=== PATIENT | female | born 1950 | race Caucasian/White ===

== ENCOUNTER 2022-06-13 14:32 | Emergency (ER) | payer MEDICARE, OTHER ==
--- NOTE | 2022-06-13 14:59 | ED Physician Documentation ---
History of Present Illness - Stated complaint Stated Complaint: RAISING HR/LOW BP - Chief complaint Chief Complaint: Cardiac - History obtained from History obtained from: Patient, Family - History of Present Illness Pain level max: 0 Pain level now: 0 - Additonal information Additional information: Patient is a 72-year-old female who presents to the emergency department complaining of feeling weak over the past month or so. She states her heart rate has been in the 40s as well. No changes today. She reportedly has a history of atrial fibrillation and had a cardioversion on May 11 at the [facility]. She does not know what medication she is on. She brought a few of her medications but not all of her medications. She is not having any chest pain, shortness of breath, nausea, vomiting, abdominal pain. Nothing makes it better or worse. Has not had any syncopal events. We will send a family member back to her house to obtain her medications. Review of Systems Ten Systems: 10 systems reviewed and negative Constitutional: denies: Fever, Chills Nose: denies: Rhinorrhea / runny nose, Congestion Throat: denies: Sore throat Cardiac: denies: Chest pain / pressure, Palpitations Respiratory: denies: Dyspnea, Cough GI: denies: Abdominal Pain, Nausea, Vomiting, Diarrhea PD PAST MEDICAL HISTORY - Past Medical History Past Medical History: Yes Cardiovascular: Atrial fibrillation - Present Medications Home Medications: Ambulatory Orders Medication Instructions Recorded Confirmed Amiodarone [Pacerone] 200 mg PO BID 06/13/22 06/13/22 Amitriptyline HCl 50 mg PO HS 06/13/22 06/13/22 Calcium Citrate 400 mg PO BID 06/13/22 06/13/22 Cevimeline HCl [Evoxac] 30 mg PO Q8HR 06/13/22 06/13/22 Cholecalciferol [Vitamin D3] 5 tab PO DAILY 06/13/22 06/13/22 Gabapentin [Neurontin] 600 mg PO Q6HR 06/13/22 06/13/22 Hydroxychloroquine [Plaquenil] 400 mg PO DAILY 06/13/22 06/13/22 Levothyroxine [Synthroid] 125 mcg PO QDAC 06/13/22 06/13/22 Metoprolol Succinate [Toprol Xl] 100 mg PO BID 06/13/22 06/13/22 Omeprazole Magnesium 20 mg PO DAILY 06/13/22 06/13/22 Rivaroxaban [Xarelto] 20 mg PO DAILY 06/13/22 06/13/22 Ropinirole HCl 0.5 mg PO BID 06/13/22 06/13/22 Rosuvastatin Calcium [Crestor] 20 mg PO HS 06/13/22 06/13/22 Sacubitril/Valsartan [Entresto 97 1 each PO BID 06/13/22 06/13/22 mg-103 mg Tablet] Sertraline HCl 100 mg PO DAILY 06/13/22 06/13/22 carvediloL [Coreg] 3.125 mg PO BID 06/13/22 06/13/22 mycophenolate mofetiL [Cellcept] 250 mg PO BID 06/13/22 06/13/22 - Allergies Allergies/Adverse Reactions: Allergies Allergy/AdvReac Type Severity Reaction Status Date / Time codeine Allergy Emesis Verified 06/13/22 14:43 lisinopril Allergy Edema Verified 06/13/22 14:43 - Living Situation Living Arrangement: reports: At home - Social History Does the pt have substance abuse?: No - Family History Family history: reports: Non contributory PD ED PE NORMAL - Vitals Vital signs reviewed: Yes - General General: Alert and oriented X 3, No acute distress - HEENT HEENT: Moist mucous membranes - Neck Neck: Supple, no meningeal sign - Cardiac Cardiac: RRR, Strong equal pulses - Respiratory Respiratory: No respiratory distress, Clear bilaterally - Abdomen Abdomen: Soft, Non tender, Non distended - Derm Derm: Warm and dry - Extremities Extremities: No edema, No calf tenderness / cord - Neuro Neuro: Alert and oriented X 3 Results - Vitals Vitals: Vital Signs - 24 hr 06/13/22 06/13/22 06/13/22 14:43 15:06 15:30 Temperature 36.8 C Heart Rate 42 L 39 L 38 L Respiratory 19 14 10 L Rate Blood Pressure 90/52 L 146/90 H 144/83 H O2 Saturation 99 98 100 06/13/22 06/13/22 06/13/22 16:19 16:32 17:02 Temperature 36.6 C Heart Rate 39 L 39 L 40 L Respiratory 18 18 18 Rate Blood Pressure 141/84 H 133/78 H 133/78 H O2 Saturation 97 98 96 Oxygen O2 Source Room air - EKG (time done) 1441 Rate: Rate (enter#) (41) Rhythm: Sinus bradycardia Thompson: Normal Intervals: Normal MT QRS: Normal Ischemia: Normal ST segments - Labs Labs: Laboratory Tests 06/13/22 06/13/22 15:00 15:00 WBC 4.1 L RBC 4.04 L Hgb 12.4 Hct 38.8 MCV 96.0 MCH 30.7 MCHC 32.0 RDW 14.5 Plt Count 210 MPV 9.9 Neut # (Auto) 2.7 Lymph # (Auto) 0.9 L Dillingham # (Auto) 0.5 Eos # (Auto) 0.0 Baso # (Auto) 0.0 Absolute Nucleated RBC 0.00 Nucleated RBC % 0.0 Sodium 138 Potassium 4.2 Chloride 102 Carbon Dioxide 30 Anion Gap 6.0 BUN 25 H Creatinine 1.1 H Estimated GFR (MDRD) 49 L Glucose 96 Calcium 8.7 Total Bilirubin 0.6 AST 20 ALT 20 Alkaline Phosphatase 55 Total Protein 6.7 Albumin 3.7 Globulin 3.0 Albumin/Globulin Ratio 1.2 Lipase 32 - Rads (name of study) cxr Radiology: Final report received, EMP read contemporaneously, See rad report PD MEDICAL DECISION MAKING - ED course Complexity details: reviewed results, re-evaluated patient, considered differential, d/w patient, d/w family, d/w clinical practice consultant ED course: Patient is a 72-year-old female who presents to the emergency department with sinus bradycardia. She is asymptomatic with this. Her blood pressure initially was hypotensive, she was given IV fluids and return to the normotensive range. Patient states that she feels much better. I discussed the case with cardiology at the [facility], their notes show that she was supposed to have stopped her metoprolol about a month ago because of bradycardia. The patient states that she stopped the 25 mg metoprolol but started on 200 mg of metoprolol. We will stop the metoprolol today. She has not had any syncope or near syncope. We will have her follow along closely with her doctor to ensure that her heart rate is improving as expected. We will also have her increase her fluid intake at home. Patient counseled regarding signs and symptoms for which I believe and ur gent re-evaluation would be necessary. Patient with good understanding of and agreement to plan and is comfortable going home at this time This document was made in part using voice recognition software. While efforts are made to proofread this document, sound alike and grammatical errors may occur. Departure - Departure Disposition: 01 Home, Self Care Clinical Impression: Sinus bradycardia, Dehydration Hypotension Qualifiers: Hypotension type: unspecified hypotension type Qualified Code(s): I95.9 - Hypotension, unspecified Condition: Good Instructions: ED Bradycardia Follow-Up: LULY STANTON MD [Primary Care Provider] - Within 1 week Comments: Please stop all metoprolol. This should help your heart rate elevate back into a normal range. I spoke with cardiology at the [facility] today. Please continue your other medications. Please return if you are having episodes of passing out or close to passing out. Discharge Date/Time: 06/13/22 17:10
[2022-06-13] MEDS ORDERED: SODIUM CHLORIDE 0.9% 1,000 ML IV STA ×2 (15:03)
[2022-06-13 15:24] LABS: BASOPHILS % (AUTO) 0.7 %; HCT - HEMATOCRIT 38.8 % (37.0-47.0); HGB - HEMOGLOBIN 12.4 g/dL (12.0-16.0); LYMPHOCYTES # (AUTO) 0.9 10^3/uL (1.5-3.5); LYMPHOCYTES % (AUTO) 22.3 %; MEAN CORPUSCULAR HEMOGLOBIN 30.7 pg (27.0-31.0); MEAN PLATELET VOLUME 9.9 fL (7.9-10.8); MONOCYTES # (AUTO) 0.5 10^3/uL (0.0-1.0); MONOCYTES % (AUTO) 11.7 %; NEUTROPHILS # (AUTO) 2.7 10^3/uL (1.5-6.6); NEUTROPHILS % (AUTO) 64.8 %; PLT - PLATELET COUNT 210 10^3/uL (130-450); RED BLOOD COUNT 4.04 10^6/uL (4.20-5.40); RED CELL DISTRIBUTION WIDTH 14.5 % (12.0-15.0); WHITE BLOOD COUNT 4.1 x10^3/uL (4.8-10.8)
[2022-06-13 15:32] LABS: ALBUMIN 3.7 g/dL (3.2-5.5); ALBUMIN/GLOBULIN RATIO 1.2 (1.0-2.2); BILIRUBIN,TOTAL 0.6 mg/dL (0.2-1.0); CALCIUM 8.7 mg/dL (8.5-10.3); CREATININE 1.1 mg/dL (0.4-1.0); POTASSIUM 4.2 mmol/L (3.5-5.0); TOTAL PROTEIN 6.7 g/dL (6.7-8.2)
--- NOTE | 2022-06-13 15:37 | XRAY Report ---
PROCEDURE: Chest 1 View X-Ray INDICATIONS: bradycardia, weakness TECHNIQUE: One view of the chest was acquired. COMPARISON: None. FINDINGS: Surgical changes and devices: None. Lungs and pleura: No pleural effusions or pneumothorax. Lungs are clear. Mediastinum: Mediastinal contours appear normal. Heart size is normal. Moderate hiatal hernia. Bones and chest wall: No suspicious bony lesions. Overlying soft tissues appear unremarkable. IMPRESSION: Moderate hiatal hernia. No acute finding. Reviewed by: Demond Mohamud MD on 06/13/2022 3:35 PM PDT Approved by: Demond Mohamud MD on 06/13/2022 3:35 PM PDT Station ID: [id number]
[2022-06-13 16:41] VITALS: BP 133/78
== END 2022-06-13 17:10 | disposition home or self-care (01) ==
LOC: ED 14:32
DX: R00.1 Bradycardia, unspecified (principal); E86.0 Dehydration; I95.9 Hypotension, unspecified; R53.1 Weakness; I48.91 Unspecified atrial fibrillation; Z79.01 Long term (current) use of anticoagulants
CPT/HCPCS: 36415; 80053; 83690; 85025; 93005; 96360; 99283

== ENCOUNTER 2022-09-26 13:11 | Emergency (ER) | payer MEDICARE, OTHER ==
[2022-09-26 13:17] VITALS: BP 134/90
--- NOTE | 2022-09-26 14:35 | ED Physician Documentation ---
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 She completed a full course of valacyclovir. However since yesterday evening she has been having subjective fevers and chills. Also having some urinary urgency and frequency though no dysuria. Here in the emergency department she denies chest pain or shortness of air. She has no fever. Past medical history includes lupus and Sjogren's. Daughter in attendance corroborates history. Review of Systems Constitutional: reports: Chills, Myalgias, Fatigue Nose: reports: Reviewed and negative Throat: reports: Reviewed and negative Cardiac: denies: Chest pain / pressure, Palpitations Respiratory: denies: Dyspnea, Cough GI: denies: Abdominal Pain, Nausea, Vomiting : reports: Frequency, Hesitancy Skin: reports: Rash (Shingles left neck) Musculoskeletal: reports: Reviewed and negative PD PAST MEDICAL HISTORY - Past Medical History Cardiovascular: Atrial fibrillation Respiratory: Asthma Neuro: Peripheral neuropathy Endocrine/Autoimmune: HyPOthyroidism GI: None PRICING LEAD: None : None HEENT: None Psych: Depression Musculoskeletal: Chronic back pain Derm: None - Past Surgical History Past Surgical History: Yes General: Cholecystectomy, Appendectomy Ortho: Arthroscopic surgery, Other - Present Medications Home Medications: Ambulatory Orders Medication Instructions Recorded Confirmed Amiodarone [Pacerone] 200 mg PO BID 06/13/22 06/13/22 Amitriptyline HCl 50 mg PO HS 06/13/22 06/13/22 Calcium Citrate 400 mg PO BID 06/13/22 06/13/22 Cevimeline HCl [Evoxac] 30 mg PO Q8HR 06/13/22 06/13/22 Cholecalciferol [Vitamin D3] 5 tab PO DAILY 06/13/22 06/13/22 Gabapentin [Neurontin] 600 mg PO Q6HR 06/13/22 06/13/22 Hydroxychloroquine [Plaquenil] 400 mg PO DAILY 06/13/22 06/13/22 Levothyroxine [Synthroid] 125 mcg PO QDAC 06/13/22 06/13/22 Metoprolol Succinate [Toprol Xl] 100 mg PO BID 06/13/22 06/13/22 Omeprazole Magnesium 20 mg PO DAILY 06/13/22 06/13/22 Rivaroxaban [Xarelto] 20 mg PO DAILY 06/13/22 06/13/22 Ropinirole HCl 0.5 mg PO BID 06/13/22 06/13/22 Rosuvastatin Calcium [Crestor] 20 mg PO HS 06/13/22 06/13/22 Sacubitril/Valsartan [Entresto 97 1 each PO BID 06/13/22 06/13/22 mg-103 mg Tablet] Sertraline HCl 100 mg PO DAILY 06/13/22 06/13/22 carvediloL [Coreg] 3.125 mg PO BID 06/13/22 06/13/22 mycophenolate mofetiL [Cellcept] 250 mg PO BID 06/13/22 06/13/22 - Allergies Allergies/Adverse Reactions: Allergies Allergy/AdvReac Type Severity Reaction Status Date / Time codeine Allergy Emesis Verified 09/26/22 13:13 lisinopril Allergy Edema Verified 09/26/22 13:13 - Social History Does the pt smoke?: No Smoking Status: Never smoker Does the pt drink ETOH?: No Does the pt have substance abuse?: No - Immunizations Immunizations are current?: Yes - POLST Patient has POLST: No PD ED PE NORMAL - General General: Alert and oriented X 3, No acute distress, Well developed/nourished - HEENT HEENT: Atraumatic, Ears normal, Moist mucous membranes, Pharynx benign - Neck Neck: Supple, no meningeal sign, No adenopathy - Cardiac Cardiac: RRR, No murmur Results - Vitals Vitals: Vital Signs - 24 hr 09/26/22 13:13 Temperature 37.0 C Heart Rate 82 Respiratory 16 Rate Blood Pressure 134/90 H O2 Saturation 98 Oxygen O2 Source Room air - Labs Labs: Laboratory Tests 09/26/22 14:31 Urine Color YELLOW Urine Clarity CLEAR Urine pH 7.0 Ur Specific Roberts 1.025 Urine Protein NEGATIVE Urine Glucose (UA) NEGATIVE Urine Ketones NEGATIVE Urine Occult Blood NEGATIVE Urine Nitrite NEGATIVE Urine Bilirubin NEGATIVE Urine Urobilinogen 0.2 (NORMAL) Ur Leukocyte Esterase NEGATIVE Ur Microscopic Review NOT INDICATED Urine Culture Comments NOT INDICATED PD Medical Decision Making - ED course Complexity details: re-evaluated patient, considered differential, d/w patient, d/w family ED course: This is a well-appearing 72 of female who presents emergency department for evaluation of persistent pain on the left side of the jaw neck and scalp at the site where she recently had shingles. The rash itself appears to have resolved. She is on Neurontin. She had also reported some vague chills and myalgias. Also urinary urgency and frequency. Urinalysis showed no findings of infection. Patient denies any chest pain or dyspnea. We deferred EKG or serum laboratory testing today Respiratory PCR is pending today. However she has no chest pain or shortness of air Or cough. Therefore I deferred a chest x-ray as my suspicion for pneumonia is low. As such I suspect that she may have a mild viral illness. She is discharged home in stable condition. Will follow up with any positive PCR results. Departure - Departure Disposition: 01 Home, Self Care Clinical Impression: Postherpetic neuralgia Condition: Stable Record reviewed to determine appropriate education?: Yes Comments: Valerie dale are seen today in the emergency department because you continue to have pain in the left side of your face and neck were you recently had shingles. The rash appears to have healed well but the pain can persist for a number of weeks and months. I encourage you to continue with the Neurontin which you already take for your neuropathy. Many people find relief of the pain by applying and [id number] lidocaine cream available at all pharmacies. Here in the emergency department today your urine showed no signs of infection. But given your reported chills and body aches we did perform a viral screening. We will have these results later this evening and I will notify you only if there are any positive findings. Encourage you to discuss this ED visit with your primary care provider. Return immediately to the ER if you develop fevers, have sudden severe chest pain shortness of air, severe abdominal pain or uncontrolled vomiting
[2022-09-26 14:40] LABS: BILIRUBIN,URINE NEGATIVE (NEGATIVE); GLUCOSE, URINE (UA) NEGATIVE (NEGATIVE); KETONES,URINE (UA) NEGATIVE (NEGATIVE); LEUKOCYTE ESTERASE, URINE NEGATIVE (NEGATIVE); NITRITE,URINE NEGATIVE (NEGATIVE); OCCULT BLOOD,URINE NEGATIVE (NEGATIVE); PROTEIN,URINE NEGATIVE (NEGATIVE); UROBILINOGEN,URINE 0.2 (NORMAL) E.U./dL (NORMAL)
[2022-09-26 14:42] LABS: CLARITY,URINE CLEAR (CLEAR)
[2022-09-26 15:46] LABS: B. PARAPERTUSSIS- RESP PCR PAN NOT DETECTED; B. PERTUSSIS- RESP PCR PANEL NOT DETECTED; C. PNEUMONIAE- RESP PCR PANEL NOT DETECTED; CORONAVIRUS 229E-RESP PCR NOT DETECTED; CORONAVIRUS HKU1-RESP PCR NOT DETECTED; CORONAVIRUS NL63-RESP PCR NOT DETECTED; CORONAVIRUS OC43-RESP PCR NOT DETECTED; HUMAN METAPNEUMOVIRUS NOT DETECTED; INFLUENZA A- RESP PCR PANEL NOT DETECTED; INFLUENZA B - RESP PCR PANEL NOT DETECTED; M. PNEUMONIAE- RESP PCR PANEL NOT DETECTED; PARAINFLUENZA VIRUS 1 NOT DETECTED; PARAINFLUENZA VIRUS 2 NOT DETECTED; PARAINFLUENZA VIRUS 3 NOT DETECTED; PARAINFLUENZA VIRUS 4 NOT DETECTED; RHINOVIRUS/ENTEROVIRUS NOT DETECTED; RSV- RESP PCR PANEL NOT DETECTED; SARS-CoV-2 -RESP PCR PANEL NOT DETECTED
== END 2022-09-26 15:42 | disposition home or self-care (01) ==
LOC: ED 13:11
DX: B02.29 Other postherpetic nervous system involvement (principal); I48.91 Unspecified atrial fibrillation; Z79.01 Long term (current) use of anticoagulants; Z20.822 Contact with and (suspected) exposure to COVID-19
CPT/HCPCS: 81001; 81003; 87086; 87633; 99283

== ENCOUNTER 2022-10-06 12:03 | Outpatient (CLI) | payer MEDICARE, OTHER | END 2022-10-06 12:04 | disposition critical access hospital (66) | LOC: EMS 12:03 | DX: R07.9 Chest pain, unspecified (principal); R06.02 Shortness of breath | CPT/HCPCS: A0425; A0429 ==

== ENCOUNTER 2022-10-06 12:22 | Emergency (ER) | payer MEDICARE, OTHER ==
--- NOTE | 2022-10-06 12:29 | ED Physician Documentation ---
History of Present Illness - Stated complaint Stated Complaint: CARDIAC CP - Additonal information Additional information: 72-year-old female is brought to the emergency department for evaluation of chest pain and shortness of air that began about 45 minutes prior to arrival. History is obtained from both the patient as well as EMS on scene. Patient is a good historian. Patient states that she was simply working at her computer, doing nothing stressful or wearing when she began to haveSevere substernal chest pain and pressure that took her breath away. Nonradiating. Denies nausea or diaphoresis. She called 911 they advised her to take an aspirin. On presentation for EMS she was noted to be in sinus rhythm. Blood sugar was 83. The chest pressure began to dissipate on its own with no further treatment and is only c/o mild discomfort at this time Patient has a history of atrial fibrillation for which she was cardioverted in May through cardiology at [place]. has reportedly been in sinus rhythm since, but was seen in the ED June for bradycardia. She also has a history of lupus and anxiety/depression. Meds: Amiodarone, carvedilol, amitriptyline, Plaquenil, Rapranol, Rouvastatin, sertraline Patient's deckhand engineer is Dr. Trotter through the [place] [facility] [place] Patient's daughter provides to me ancillary history that the patient did not allude to. She states that over the weekend patient was nauseated and had 2 to 3 days of diarrhea. Since then she had very little oral intake until yesterday when she began feeling better and eating better. Review of Systems Constitutional: denies: Fever, Chills Nose: reports: Reviewed and negative Throat: reports: Reviewed and negative Cardiac: reports: Chest pain / pressure. denies: Palpitations, Pedal edema, Calf pain Respiratory: reports: Dyspnea. denies: Cough, Hemoptysis, Wheezing GI: reports: Reviewed and negative : reports: Reviewed and negative Skin: reports: Reviewed and negative Musculoskeletal: reports: Reviewed and negative Neurologic: reports: Reviewed and negative PD PAST MEDICAL HISTORY - Past Medical History Cardiovascular: Atrial fibrillation Respiratory: Asthma Neuro: Peripheral neuropathy Endocrine/Autoimmune: HyPOthyroidism GI: None HEALTH CARE ADMINISTRATOR: None : None HEENT: None Psych: Depression Musculoskeletal: Chronic back pain Derm: None - Past Surgical History Past Surgical History: Yes General: Cholecystectomy, Appendectomy Ortho: Arthroscopic surgery, Other - Present Medications Home Medications: Ambulatory Orders Medication Instructions Recorded Confirmed Amiodarone [Pacerone] 200 mg PO BID 06/13/22 10/06/22 Amitriptyline HCl 50 mg PO HS 06/13/22 10/06/22 Calcium Citrate 400 mg PO BID 06/13/22 10/06/22 Cevimeline HCl [Evoxac] 30 mg PO Q8HR 06/13/22 10/06/22 Cholecalciferol [Vitamin D3] 5 tab PO DAILY 06/13/22 10/06/22 Gabapentin [Neurontin] 600 mg PO Q6HR 06/13/22 10/06/22 Hydroxychloroquine [Plaquenil] 400 mg PO DAILY 06/13/22 10/06/22 Levothyroxine [Synthroid] 125 mcg PO QDAC 06/13/22 10/06/22 Rivaroxaban [Xarelto] 20 mg PO DAILY 06/13/22 10/06/22 Ropinirole HCl 0.25 mg PO BID 06/13/22 10/06/22 Rosuvastatin Calcium [Crestor] 20 mg PO HS 06/13/22 10/06/22 Sacubitril/Valsartan [Entresto 97 1 each PO BID 06/13/22 10/06/22 mg-103 mg Tablet] Sertraline HCl 100 mg PO DAILY 06/13/22 10/06/22 carvediloL [Coreg] 3.125 mg PO BID 06/13/22 10/06/22 mycophenolate mofetiL [Cellcept] 250 mg PO BID 06/13/22 10/06/22 - Allergies Allergies/Adverse Reactions: Allergies Allergy/AdvReac Type Severity Reaction Status Date / Time codeine Allergy Emesis Verified 10/06/22 12:28 lisinopril Allergy Edema Verified 10/06/22 12:28 - Social History Does the pt smoke?: No Smoking Status: Never smoker Does the pt drink ETOH?: No Does the pt have substance abuse?: No - Immunizations Immunizations are current?: Yes - POLST Patient has POLST: No PD ED PE NORMAL - General General: Alert and oriented X 3, No acute distress, Well developed/nourished - HEENT HEENT: Atraumatic, Moist mucous membranes - Neck Neck: Supple, no meningeal sign, No adenopathy - Cardiac Cardiac: RRR, No murmur (Normal sinus rhythm.), Strong equal pulses - Respiratory Respiratory: No respiratory distress, Clear bilaterally - Abdomen Abdomen: Normal bowel sounds, Soft - Back Back: No CVA TTP, No spinal TTP - Derm Derm: Normal color, Warm and dry, No rash - Extremities Extremities: No deformity, No tenderness to palpate, Normal ROM s pain - Neuro Neuro: Alert and oriented X 3, flexographic press operator 2-12 intact Eye Opening: Spontaneous Motor: Obeys Commands Verbal: Oriented GCS Score: 15 - Psych Psych: Normal mood Results - Vitals Vitals: Vital Signs - 24 hr 10/06/22 10/06/22 10/06/22 12:25 12:57 13:27 Temperature 36.6 C Heart Rate 58 L 59 L 55 L Respiratory 18 14 14 Rate Blood Pressure 153/87 H 126/79 123/78 O2 Saturation 100 100 99 10/06/22 10/06/22 10/06/22 14:00 14:30 15:00 Temperature Heart Rate 57 L 54 L 53 L Respiratory 15 14 15 Rate Blood Pressure 117/87 H 141/82 H 154/83 H O2 Saturation 100 100 98 10/06/22 10/06/22 10/06/22 15:30 16:00 16:30 Temperature Heart Rate 53 L 63 55 L Respiratory 15 15 16 Rate Blood Pressure 134/89 H 150/83 H 139/87 H O2 Saturation 97 98 98 10/06/22 10/06/22 10/06/22 17:00 17:30 18:00 Temperature Heart Rate 53 L 77 57 L Respiratory 14 14 14 Rate Blood Pressure 133/90 H 165/96 H 165/96 H O2 Saturation 100 100 100 10/06/22 18:30 Temperature 36.5 C Heart Rate 54 L Respiratory 16 Rate Blood Pressure 128/82 H O2 Saturation 100 Oxygen O2 Source Room air - EKG (time done) 1250 Rate: Rate (enter#) (58) Rhythm: NSR Intervals: Normal [place], Prolonged QT QRS: Normal Ischemia: Non specific changes Compare to prior EKG: Unchanged from prior EKG Computer interpretation: Agree with computer 1727 Rate: Rate (enter#) (83) Rhythm: NSR [place]: Normal Intervals: Normal [place]. No: Prolonged QT Ischemia: Non specific changes Compare to prior EKG: Changed from prior EKG (QTC now 470) Computer interpretation: Agree with computer - Labs Labs: Laboratory Tests 10/06/22 10/06/22 10/06/22 12:20 12:20 12:26 WBC 7.1 RBC 4.43 Hgb 13.3 Hct 40.6 MCV 91.6 MCH 30.0 MCHC 32.8 RDW 15.2 H Plt Count 206 MPV 10.2 Neut # (Auto) 4.8 Lymph # (Auto) 1.3 L [place] # (Auto) 1.0 Eos # (Auto) 0.0 Baso # (Auto) 0.0 Absolute Nucleated RBC 0.00 Nucleated RBC % 0.0 PT INR Sodium Potassium Chloride Carbon Dioxide Anion Gap BUN Creatinine Estimated GFR (MDRD) Glucose Calcium Magnesium 1.7 Total Bilirubin AST ALT Alkaline Phosphatase Troponin I High Sens B-Natriuretic Peptide Total Protein Albumin Globulin Albumin/Globulin Ratio Lipase TSH 1.00 Nasal Influenza B PCR Nasal Influenza A PCR Nasal RSV (PCR) Nasal SARS-CoV-2 (PCR) 10/06/22 10/06/22 10/06/22 12:26 12:26 12:26 WBC RBC Hgb Hct MCV MCH MCHC RDW Plt Count MPV Neut # (Auto) Lymph # (Auto) [place] # (Auto) Eos # (Auto) Baso # (Auto) Absolute Nucleated RBC Nucleated RBC % PT 16.0 H INR 1.5 H Sodium 136 Potassium 2.5 L* Chloride 97 L Carbon Dioxide 23 Anion Gap 16.0 H BUN 11 Creatinine 1.0 Estimated GFR (MDRD) 54 L Glucose 96 Calcium 8.6 Magnesium Total Bilirubin 0.9 AST 29 ALT 19 Alkaline Phosphatase 33 L Troponin I High Sens 17.1 H* B-Natriuretic Peptide Total Protein 6.5 L Albumin 3.7 Globulin 2.8 Albumin/Globulin Ratio 1.3 Lipase 42 TSH Nasal Influenza B PCR Nasal Influenza A PCR Nasal RSV (PCR) Nasal SARS-CoV-2 (PCR) 10/06/22 10/06/22 10/06/22 12:26 14:08 15:09 WBC RBC Hgb Hct MCV MCH MCHC RDW Plt Count MPV Neut # (Auto) Lymph # (Auto) [place] # (Auto) Eos # (Auto) Baso # (Auto) Absolute Nucleated RBC Nucleated RBC % PT INR Sodium Potassium Chloride Carbon Dioxide Anion Gap BUN Creatinine Estimated GFR (MDRD) Glucose Calcium Magnesium Total Bilirubin AST ALT Alkaline Phosphatase Troponin I High Sens 14.9 H* B-Natriuretic Peptide 169 H Total Protein Albumin Globulin Albumin/Globulin Ratio Lipase TSH Nasal Influenza B PCR NOT DETECTED Nasal Influenza A PCR NOT DETECTED Nasal RSV (PCR) NOT DETECTED Nasal SARS-CoV-2 (PCR) NOT DETECTED 10/06/22 18:03 WBC RBC Hgb Hct MCV MCH MCHC RDW Plt Count MPV Neut # (Auto) Lymph # (Auto) [place] # (Auto) Eos # (Auto) Baso # (Auto) Absolute Nucleated RBC Nucleated RBC % PT INR Sodium Potassium 3.0 L Chloride Carbon Dioxide Anion Gap BUN Creatinine Estimated GFR (MDRD) Glucose Calcium Magnesium Total Bilirubin AST ALT Alkaline Phosphatase Troponin I High Sens B-Natriuretic Peptide Total Protein Albumin Globulin Albumin/Globulin Ratio Lipase TSH Nasal Influenza B PCR Nasal Influenza A PCR Nasal RSV (PCR) Nasal SARS-CoV-2 (PCR) - Rads (name of study) cxr Radiology: Final report received (No acute cardiopulmonary process) PD Medical Decision Making - ED course Complexity details: reviewed results, re-evaluated patient, considered differ ential, d/w patient ED course: 72-year-old female presents to the emergency department for evaluation of substernal chest pain and chest pressure that began about 11:45 AM. She does have a history of atrial fibrillation for which she was cardioverted in May through the [place] deckhand engineer. She is not anticoagulated and has seemingly been in sinus rhythm since then. For EMS she received a total of 325 of aspirin. On arrival to the ER her pain had markedly subsided and was only described as mild. She was given a dose of nitroglycerin which fully abated the chest discomfort though she did endorse a mild headache following. Patient's initial EKG is nonischemic. It is interpreted by the computer as an ectopic atrial though I believe there are P waves present before each complex. She also has a prolonged QT interval. Not surprisingly her potassium level is 2.5 on serum labs. I suspect the cause of her hypokalemia to be the poor oral intake in the days preceding as well as some diarrhea. In order to address the hypokalemia she was administered 40 mg of potassium IV as well as 20 mg orally. A repeat potassium was3.0. I did repeat her EKG after the Potassium had been administered and her repeat QTC is now 470 and no longer prolonged. Patient will be discharged with a prescription for potassium 20 No equivalents daily for the next 4 days. I suspect her hypokalemia is due to the diarrhea in the preceding days as well as poor p.o. intake Patient's initial troponin 17.9. Given that she presented so quickly after the pain event a repeat troponin was ordered for 1500 and was 14.9. Essentially flat. I did speak with the on-call deckhand engineer Dr. Ring with the [facility]. He feels that the patient can be safely discharged home. He reports that they will arrange for an outpatient follow-up Zoom visit within the week to discuss further testing and care needs. While here in the emergency department for 6 and half hours the patient has remained hemodynamically stable and now free of chest pain. She is discharged home in stable condition. The usual emergent return precautions for concerns of chest pain were discussed Departure - Departure Disposition: Home, Self Care Clinical Impression: Hypokalemia, Prolonged Q-T interval on ECG Chest pain Qualifiers: Chest pain type: unspecified Qualified Code(s): R07.9 - Chest pain, unspecified Condition: Stable Record reviewed to determine appropriate education?: Yes Instructions: ED Heart Disease Risk Factors Comments: Valerie dale came to the emergency department today for a brief episode of chest pain that occurred while you are sitting at the computer. While here in the emergency department you will had received 325 mg of aspirin and we did give you a one-time dose of nitroglycerin which fully alleviated you have chest pain. Your EKG did not show ischemic changes. However you did have a prolonged QTC. We usually see this when patients have low potassium levels. Interestingly your potassium was 2.5. Here in the emergency department we gave you both oral and IV potassium for total of 60 mEq. On repeat evaluation your potassium has risen to 3 and your QTC has normalized. I am discharging you with a prescription for potassium 20 mEq a day to take for the next 4 days. With your history of atrial fibrillation as well as your age it is not clear what the episode of chest pain was due to. I did speak with Dr. Ring a deckhand engineer with the [facility]. He will be having the office give you a call early next week to arrange an outpatient Zoom visit. During that visit they can discuss whether you will need further evaluation or testing such as with an echocardiogram or stress test. You can continue to take your other usual medications. Return to the ER if you have any sudden severe chest pain, shortness of air or feel that your symptoms are not improving.
[2022-10-06 12:31] LABS: BASOPHILS % (AUTO) 0.3 %; HCT - HEMATOCRIT 40.6 % (37.0-47.0); HGB - HEMOGLOBIN 13.3 g/dL (12.0-16.0); LYMPHOCYTES # (AUTO) 1.3 10^3/uL (1.5-3.5); MEAN CORPUSCULAR HGB CONC 32.8 g/dL (32.0-36.0); MEAN CORPUSCULAR VOLUME 91.6 fL (81.0-99.0); MEAN PLATELET VOLUME 10.2 fL (7.9-10.8); MONOCYTES % (AUTO) 13.7 %; NEUTROPHILS # (AUTO) 4.8 10^3/uL (1.5-6.6); NEUTROPHILS % (AUTO) 67.7 %; PLT - PLATELET COUNT 206 10^3/uL (130-450); RED BLOOD COUNT 4.43 10^6/uL (4.20-5.40); RED CELL DISTRIBUTION WIDTH 15.2 % (12.0-15.0); WHITE BLOOD COUNT 7.1 x10^3/uL (4.8-10.8)
[2022-10-06 12:39] LABS: INR 1.5 (0.8-1.2)
--- NOTE | 2022-10-06 12:39 | XRAY Report ---
PROCEDURE: Chest 1 View X-Ray INDICATIONS: Chest Pain TECHNIQUE: One view of the chest was acquired. COMPARISON: None. FINDINGS: Surgical changes and devices: None. Lungs and pleura: No pleural effusions or pneumothorax. Lungs are clear. Mediastinum: Mediastinal contours appear normal. Heart size is mildly enlarged.Retrocardiac lucency is present suggestive hiatal hernia. Bones and chest wall: No suspicious bony lesions. Overlying soft tissues appear unremarkable. IMPRESSION: No acute pulmonary process. Reviewed by: Prabha Croft MD on 10/06/2022 12:37 PM PST Approved by: Prabha Croft MD on 10/06/2022 12:37 PM PST Station ID: [id number]
[2022-10-06 12:47] LABS: ALBUMIN 3.7 g/dL (3.2-5.5); ALBUMIN/GLOBULIN RATIO 1.3 (1.0-2.2); BILIRUBIN,TOTAL 0.9 mg/dL (0.2-1.0); CALCIUM 8.6 mg/dL (8.5-10.3); TOTAL PROTEIN 6.5 g/dL (6.7-8.2)
[2022-10-06 12:48] LABS: POTASSIUM 2.5 mmol/L (3.5-5.0)
[2022-10-06] MEDS ORDERED: NITROGLYCERIN SL 0.4 MG TABLET SL STA (12:57)
[2022-10-06] MEDS: POTASSIUM CHLOR 10 MEQ/100 ML 10 MEQ/100 ML BAG IV SCH ×4 (12:59→16:11)
[2022-10-06] MEDS ORDERED: SODIUM CHLORIDE 0.9% 1,000 ML IV STA (13:11)
[2022-10-06] MEDS ORDERED: POTASSIUM CHLORIDE 20 MEQ TABLET PO STA (13:24)
[2022-10-06 15:07] LABS: INFLUENZA A- RESP PCR PANEL NOT DETECTED; INFLUENZA B - RESP PCR PANEL NOT DETECTED; RSV- RESP PCR PANEL NOT DETECTED; SARS-CoV-2 -RESP PCR PANEL NOT DETECTED
[2022-10-06 18:45] VITALS: BP 128/82
== END 2022-10-06 19:23 | disposition home or self-care (01) ==
LOC: EDUNIT# → ED 12:22
DX: E87.6 Hypokalemia (principal); R94.31 Abnormal electrocardiogram [ECG] [EKG]; R07.9 Chest pain, unspecified; Z20.822 Contact with and (suspected) exposure to COVID-19
CPT/HCPCS: 36415; 71045; 80053; 83690; 83735; 83880; 84132; 84443; 84484; 85025; 85610; 87637; 93005; 96365; 96366; 99284; A9270

== ENCOUNTER 2022-10-11 09:35 | Outpatient (CLI) | payer MEDICARE, OTHER | END 2022-10-11 09:36 | disposition critical access hospital (66) | LOC: EMS 09:35 | DX: R42 Dizziness and giddiness (principal); R11.2 Nausea with vomiting, unspecified; R63.8 Other symptoms and signs concerning food and fluid intake; I48.91 Unspecified atrial fibrillation | CPT/HCPCS: A0425; A0429 ==

== ENCOUNTER 2022-10-11 09:48 | Emergency (ER) | payer MEDICARE, OTHER ==
[2022-10-11] MEDS ORDERED: ONDANSETRON 4 MG/2 ML VIAL IVP STA (10:55)
[2022-10-11] MEDS ORDERED: SODIUM CHLORIDE 0.9% 1,000 ML IV STA (10:55)
[2022-10-11 11:12] LABS: BASOPHILS % (AUTO) 0.3 %; HCT - HEMATOCRIT 39.7 % (37.0-47.0); HGB - HEMOGLOBIN 12.8 g/dL (12.0-16.0); LYMPHOCYTES % (AUTO) 16.4 %; MEAN CORPUSCULAR HGB CONC 32.2 g/dL (32.0-36.0); MEAN CORPUSCULAR VOLUME 93.2 fL (81.0-99.0); MEAN PLATELET VOLUME 9.9 fL (7.9-10.8); MONOCYTES # (AUTO) 0.9 10^3/uL (0.0-1.0); MONOCYTES % (AUTO) 14.7 %; NEUTROPHILS % (AUTO) 68.3 %; PLT - PLATELET COUNT 199 10^3/uL (130-450); RED BLOOD COUNT 4.26 10^6/uL (4.20-5.40); WHITE BLOOD COUNT 5.8 x10^3/uL (4.8-10.8)
[2022-10-11 11:30] LABS: ALBUMIN 3.7 g/dL (3.2-5.5); ALBUMIN/GLOBULIN RATIO 1.4 (1.0-2.2); BILIRUBIN,TOTAL 0.7 mg/dL (0.2-1.0); CALCIUM 8.8 mg/dL (8.5-10.3); CREATININE 0.8 mg/dL (0.4-1.0); POTASSIUM 3.2 mmol/L (3.5-5.0); TOTAL PROTEIN 6.3 g/dL (6.7-8.2)
[2022-10-11] MEDS ORDERED: POTASSIUM CHLORIDE 20 MEQ TABLET PO STA (11:40)
[2022-10-11 12:58] LABS: BILIRUBIN,URINE NEGATIVE (NEGATIVE); GLUCOSE, URINE (UA) NEGATIVE (NEGATIVE); KETONES,URINE (UA) NEGATIVE (NEGATIVE); LEUKOCYTE ESTERASE, URINE NEGATIVE (NEGATIVE); NITRITE,URINE NEGATIVE (NEGATIVE); OCCULT BLOOD,URINE NEGATIVE (NEGATIVE); PH,URINE 6.5 PH (5.0-7.5); PROTEIN,URINE NEGATIVE (NEGATIVE); UROBILINOGEN,URINE 0.2 (NORMAL) E.U./dL (NORMAL)
[2022-10-11 13:02] LABS: CLARITY,URINE CLEAR (CLEAR)
--- NOTE | 2022-10-11 13:02 | ED Physician Documentation ---
History of Present Illness - Stated complaint Stated Complaint: DIZZINESS/WEAKNESS - Chief complaint Chief Complaint: General - History obtained from History obtained from: Patient - Additonal information Additional information: Patient is a 72-year-old female with a recent bout of shingles presenting for evaluation of nausea and vomiting that is been ongoing for several days along with feeling lightheaded. Her daughter at the bedside states that she has not been able to keep any food down. She has been doing okay with liquids. She no longer has any Sores or rash from the shingles and completed a course of valacyclovir.She denies a headache but reports feeling lightheaded at times when she stands up. She denies vertiginous symptoms. She denies fever, chest pain, difficulty breathing or abdominal pain. She denies dysuria or hematuria.She was seen here recently for chest pain and found to have a low potassium level at that time. Review of Systems Constitutional: denies: Fever Cardiac: denies: Chest pain / pressure Respiratory: denies: Dyspnea GI: reports: Nausea, Vomiting. denies: Diarrhea : denies: Dysuria Musculoskeletal: denies: Back pain Neurologic: denies: Headache PD PAST MEDICAL HISTORY - Past Medical History Cardiovascular: Atrial fibrillation Respiratory: Asthma Neuro: Peripheral neuropathy Endocrine/Autoimmune: HyPOthyroidism GI: None DIAMOND SELECTOR: None : None HEENT: None Psych: Depression Musculoskeletal: Chronic back pain Derm: None - Past Surgical History Past Surgical History: Yes General: Cholecystectomy, Appendectomy Ortho: Arthroscopic surgery, Other - Present Medications Home Medications: Ambulatory Orders Medication Instructions Recorded Confirmed Amiodarone [Pacerone] 200 mg PO BID 06/13/22 10/06/22 Amitriptyline HCl 50 mg PO HS 06/13/22 10/06/22 Calcium Citrate 400 mg PO BID 06/13/22 10/06/22 Cevimeline HCl [Evoxac] 30 mg PO Q8HR 06/13/22 10/06/22 Cholecalciferol [Vitamin D3] 5 tab PO DAILY 06/13/22 10/06/22 Gabapentin [Neurontin] 600 mg PO Q6HR 06/13/22 10/06/22 Hydroxychloroquine [Plaquenil] 400 mg PO DAILY 06/13/22 10/06/22 Levothyroxine [Synthroid] 125 mcg PO QDAC 06/13/22 10/06/22 Rivaroxaban [Xarelto] 20 mg PO DAILY 06/13/22 10/06/22 Ropinirole HCl 0.25 mg PO BID 06/13/22 10/06/22 Rosuvastatin Calcium [Crestor] 20 mg PO HS 06/13/22 10/06/22 Sacubitril/Valsartan [Entresto 97 1 each PO BID 06/13/22 10/06/22 mg-103 mg Tablet] Sertraline HCl 100 mg PO DAILY 06/13/22 10/06/22 carvediloL [Coreg] 3.125 mg PO BID 06/13/22 10/06/22 mycophenolate mofetiL [Cellcept] 250 mg PO BID 06/13/22 10/06/22 Potassium Chloride [K-Dur] 20 meq PO DAILY #4 tablet 10/06/22 Ondansetron Odt [Zofran] 4 mg TL Q6H PRN #10 tablet 10/11/22 - Allergies Allergies/Adverse Reactions: Allergies Allergy/AdvReac Type Severity Reaction Status Date / Time codeine Allergy Emesis Verified 10/11/22 09:55 lisinopril Allergy Edema Verified 10/11/22 09:55 - Social History Does the pt smoke?: No Smoking Status: Never smoker Does the pt drink ETOH?: No Does the pt have substance abuse?: No - Immunizations Immunizations are current?: Yes - POLST Patient has POLST: No PD ED PE NORMAL - General General: Alert and oriented X 3, No acute distress, Well developed/nourished - HEENT HEENT: Atraumatic, Moist mucous membranes, Pharynx benign - Neck Neck: Supple, no meningeal sign - Cardiac Cardiac: Other (Irregularly irregular, normal rate) - Respiratory Respiratory: No respiratory distress, Clear bilaterally - Abdomen Abdomen: Normal bowel sounds, Soft, Non tender, Non distended - Derm Derm: Warm and dry, No rash - Extremities Extremities: No edema - Neuro Neuro: Alert and oriented X 3, columnist/commentator 2-12 intact, No motor deficit, No sensory deficit, Normal speech Results - Vitals Vitals: Vital Signs - 24 hr 10/11/22 10/11/22 10/11/22 09:55 11:03 13:00 Temperature 36.5 C Heart Rate 60 58 L 55 L Respiratory 18 17 22 Rate Blood Pressure 144/100 H 145/88 H 136/82 H O2 Saturation 98 98 98 Oxygen O2 Source Room air - EKG (time done) 0954 Rate: Rate (enter#) (85) Rhythm: Atrial fibrillation Other comments: Other comments (Significant motion artifact ) - Labs Labs: Laboratory Tests 10/11/22 10/11/22 10/11/22 10:55 11:05 11:05 WBC 5.8 RBC 4.26 Hgb 12.8 Hct 39.7 MCV 93.2 MCH 30.0 MCHC 32.2 RDW 16.0 H Plt Count 199 MPV 9.9 Neut # (Auto) 4.0 Lymph # (Auto) 1.0 L [place] # (Auto) 0.9 Eos # (Auto) 0.0 Baso # (Auto) 0.0 Absolute Nucleated RBC 0.00 Nucleated RBC % 0.0 Sodium 135 Potassium 3.2 L Chloride 96 L Carbon Dioxide 25 Anion Gap 14.0 H BUN 9 Creatinine 0.8 Estimated GFR (MDRD) 70 L Glucose 105 H Calcium 8.8 Magnesium 1.7 Total Bilirubin 0.7 AST 27 ALT 20 Alkaline Phosphatase 32 L Total Protein 6.3 L Albumin 3.7 Globulin 2.6 Albumin/Globulin Ratio 1.4 Lipase 36 Urine Color Urine Clarity Urine pH Ur Specific [place] Urine Protein Urine Glucose (UA) Urine Ketones Urine Occult Blood Urine Nitrite Urine Bilirubin Urine Urobilinogen Ur Leukocyte Esterase Ur Microscopic Review Urine Culture Comments 10/11/22 12:40 WBC RBC Hgb Hct MCV MCH MCHC RDW Plt Count MPV Neut # (Auto) Lymph # (Auto) [place] # (Auto) Eos # (Auto) Baso # (Auto) Absolute Nucleated RBC Nucleated RBC % Sodium Potassium Chloride Carbon Dioxide Anion Gap BUN Creatinine Estimated GFR (MDRD) Glucose Calcium Magnesium Total Bilirubin AST ALT Alkaline Phosphatase Total Protein Albumin Globulin Albumin/Globulin Ratio Lipase Urine Color YELLOW Urine Clarity CLEAR Urine pH 6.5 Ur Specific [place] 1.010 Urine Protein NEGATIVE Urine Glucose (UA) NEGATIVE Urine Ketones NEGATIVE Urine Occult Blood NEGATIVE Urine Nitrite NEGATIVE Urine Bilirubin NEGATIVE Urine Urobilinogen 0.2 (NORMAL) Ur Leukocyte Esterase NEGATIVE Ur Microscopic Review NOT INDICATED Urine Culture Comments NOT INDICATED PD Medical Decision Making - ED course Complexity details: reviewed results, re-evaluated patient, d/w patient ED course: Patient presenting for evaluation of nausea and vomiting.I did consider abdominal imaging but Her abdominal exam is benign. We did obtain labs and administered IV fluids. Her labs were reviewed which demonstrate a mild hyp okalemia of 3.2. This was replaced with p.o.Her EKG was also reviewed although there was significant motion artifact.Her urine is negative for infection. Her neuro exam is normal and she does not have symptoms to suggest a stroke. I do not see signs of active shingles infection.Patient is tolerating p.o. here and feeling better.She is comfortable with plan for discharge with continued hydration at home and close follow-up with her PCP.Patient and daughter advised on concerning symptoms to return for. Departure - Departure Disposition: Home, Self Care Clinical Impression: Nausea & vomiting, Hypokalemia Condition: Stable Instructions: ED Potassium Deficiency, ED Nausea Vomiting Follow-Up: [facility] [Provider Group] Prescriptions: Ondansetron Odt [Zofran] 4 mg TL Q6H PRN #10 tablet PRN Reason: Nausea / Vomiting Comments: Please follow-up with your primary care doctor through the [facility] for your ongoing symptoms. It is important you stay hydrated. Your potassium level was slightly low today at 3.2 and you were given a potassium pill to help replace this. I would recommend starting out with primarily liquids and making sure you are also getting some protein so boost or Ensure would be good options. I have also sent a small amount of antinausea medications to [facility]. Please use this only as needed. If you have any new or worsening symptoms please consider return to the emergency department. Discharge Date/Time: 10/11/22 13:23
[2022-10-11 13:09] VITALS: BP 136/82
== END 2022-10-11 13:23 | disposition home or self-care (01) ==
LOC: EDUNIT# → ED 09:48
DX: R11.2 Nausea with vomiting, unspecified (principal); E87.6 Hypokalemia; I48.91 Unspecified atrial fibrillation; Z79.01 Long term (current) use of anticoagulants
CPT/HCPCS: 36415; 80053; 81003; 83690; 83735; 85025; 93005; 96361; 96374; 99284; A9270; 81001; 87086

== ENCOUNTER 2022-10-18 01:51 | Outpatient (CLI) | payer MEDICARE, OTHER | END 2022-10-18 01:52 | disposition critical access hospital (66) | LOC: EMS 01:51 | DX: R51.9 Headache, unspecified (principal); M25.552 Pain in left hip; M25.562 Pain in left knee; R25.1 Tremor, unspecified; W01.0XXA Fall on same level from slipping, tripping and stumbling without subsequent striking against object, initial encounter; Y92.009 Unspecified place in unspecified non-institutional (private) residence as the place of occurrence of the external cause | CPT/HCPCS: A0425; A0429 ==

== ENCOUNTER 2022-10-18 02:12 | Emergency (ER) | payer MEDICARE, OTHER ==
[2022-10-18] MEDS ORDERED: ONDANSETRON 4 MG/2 ML VIAL IVP STA (02:15)
[2022-10-18] MEDS ORDERED: fentaNYL 100 MCG/2 ML VIAL IVP STA (02:15)
[2022-10-18 02:33] LABS: BASOPHILS # (AUTO) 0.1 10^3/uL (0.0-0.1); BASOPHILS % (AUTO) 0.7 %; HCT - HEMATOCRIT 38.5 % (37.0-47.0); HGB - HEMOGLOBIN 11.8 g/dL (12.0-16.0); LYMPHOCYTES % (AUTO) 13.6 %; MEAN CORPUSCULAR HGB CONC 30.6 g/dL (32.0-36.0); MEAN PLATELET VOLUME 9.7 fL (7.9-10.8); MONOCYTES # (AUTO) 1.1 10^3/uL (0.0-1.0); MONOCYTES % (AUTO) 14.4 %; NEUTROPHILS # (AUTO) 5.4 10^3/uL (1.5-6.6); PLT - PLATELET COUNT 190 10^3/uL (130-450); RED BLOOD COUNT 3.93 10^6/uL (4.20-5.40); RED CELL DISTRIBUTION WIDTH 16.8 % (12.0-15.0); WHITE BLOOD COUNT 7.6 x10^3/uL (4.8-10.8)
[2022-10-18] MEDS ORDERED: iohexoL-300 100 ML VIAL ONE (02:33)
[2022-10-18 02:43] LABS: INR 2.5 (0.8-1.2); PT - PROTHROMBIN TIME 26.8 secs (9.9-12.6)
[2022-10-18 02:46] LABS: ALBUMIN 3.5 g/dL (3.2-5.5); ALBUMIN/GLOBULIN RATIO 1.3 (1.0-2.2); ALKALINE PHOSPHATASE 31 IU/L (42-121); ALT ALANINE AMINOTRANSFERASE 24 IU/L (10-60); AST ASPARTATE AMINOTRANSFERASE 31 IU/L (10-42); BILIRUBIN,TOTAL 0.6 mg/dL (0.2-1.0); BUN - BLOOD UREA NITROGEN 15 mg/dL (6-20); CALCIUM 8.9 mg/dL (8.5-10.3); CARBON DIOXIDE - CO2 24 mmol/L (21-32); CHLORIDE 99 mmol/L (101-111); CREATININE 1.1 mg/dL (0.4-1.0); ETOH - ETHANOL < 5.0 mg/dL; GFR - MDRD 49 (>89); GLUCOSE 118 mg/dL (70-100); LIPASE 38 U/L (22-51); POTASSIUM 3.6 mmol/L (3.5-5.0); SODIUM 136 mmol/L (135-145); TOTAL PROTEIN 6.1 g/dL (6.7-8.2)
[2022-10-18 03:01] LABS: MUDS CUTOFF CONCENTRATIONS CUTOFF CONC BELOW:
[2022-10-18 03:04] LABS: BILIRUBIN,URINE NEGATIVE (NEGATIVE); GLUCOSE, URINE (UA) NEGATIVE (NEGATIVE); KETONES,URINE (UA) NEGATIVE (NEGATIVE); LEUKOCYTE ESTERASE, URINE NEGATIVE (NEGATIVE); NITRITE,URINE NEGATIVE (NEGATIVE); OCCULT BLOOD,URINE NEGATIVE (NEGATIVE); PROTEIN,URINE NEGATIVE (NEGATIVE); UROBILINOGEN,URINE 0.2 (NORMAL) E.U./dL (NORMAL)
[2022-10-18] MEDS: fentaNYL 100 MCG/2 ML VIAL IVP PRN ×2 (03:05→03:20)
[2022-10-18 03:06] LABS: CLARITY,URINE CLEAR (CLEAR)
[2022-10-18 03:15] LABS: AMPHETAMINE SCREEN,URINE NEGATIVE (NEGATIVE); BARBITURATE SCREEN,UR NEGATIVE (NEGATIVE); BENZODIAZEPINES SCREEN, URINE NEGATIVE (NEGATIVE); COCAINE SCREEN URINE NEGATIVE (NEGATIVE); METHADONE SCREEN, URINE NEGATIVE (NEGATIVE); METHAMPHETAMINES SCREEN, URINE NEGATIVE (NEGATIVE); OPIATE SCREEN, URINE NEGATIVE (NEGATIVE); OXYCODONE SCREEN, URINE NEGATIVE (NEGATIVE); PROPOXYPHENE SCREEN, URINE NEGATIVE (NEGATIVE); THC CANNABINOID SCREEN, URINE NEGATIVE (NEGATIVE); TRICYCLIC ANTIDEPRESSANT,URINE POSITIVE (NEGATIVE)
[2022-10-18] MEDS ORDERED: LORazepam 2 MG/ML VIAL IVP STA (03:24)
[2022-10-18] MEDS ORDERED: MIDAZOLAM 2 MG/2 ML VIAL IVP STA (03:31)
[2022-10-18] MEDS ORDERED: iohexoL-300 100 ML VIAL IVP ONE (04:20)
[2022-10-18] MEDS ORDERED: MIDAZOLAM 2 MG/2 ML VIAL IVP PRN ×2 (05:04→05:12)
--- NOTE | 2022-10-18 05:20 | ED Physician Documentation ---
History of Present Illness - Stated complaint Stated Complaint: GLF - Chief complaint Chief Complaint: Trauma Hd/Nk - Additonal information Additional information: Patient is a 72-year-old female presenting to the emergency department with c hief complaint of fall with facial trauma on Coumadin. Per EMS patient has tremor disorder secondary to Sjogren syndrome. Tremors have a getting progressively worse. Patient was using walker on way to bathroom prior to fall. Uncertain if there is loss of consciousness. Family reports that she has been unable to care for herself and they have been unable to care for her at home. They report that her tremor has progressed to the point where she can no longer eat or drink and that they are unable to assist with things like transfers or lifting her up off the ground when she falls. She reports that she has been having headache and abdominal pain since the fall. She does appear somewhat altered and disorientated to time and history is limited by this fact. Review of Systems Unable to obtain: AMS PD PAST MEDICAL HISTORY - Past Medical History Past Medical History: Yes Cardiovascular: Atrial fibrillation Respiratory: Asthma Neuro: Peripheral neuropathy Endocrine/Autoimmune: HyPOthyroidism, Other GI: Hiatal hernia SHORE WORKER: None : None HEENT: None Psych: Depression Musculoskeletal: Chronic back pain Derm: Herpes zoster Other Past Medical History: Sjogren's Syndrome - Past Surgical History Past Surgical History: Yes General: Cholecystectomy, Appendectomy Ortho: Arthroscopic surgery, Other - Present Medications Home Medications: Ambulatory Orders Medication Instructions Recorded Confirmed Amiodarone [Pacerone] 200 mg PO BID 06/13/22 10/06/22 Amitriptyline HCl 50 mg PO HS 06/13/22 10/06/22 Calcium Citrate 400 mg PO BID 06/13/22 10/06/22 Cevimeline HCl [Evoxac] 30 mg PO Q8HR 06/13/22 10/06/22 Cholecalciferol [Vitamin D3] 5 tab PO DAILY 06/13/22 10/06/22 Gabapentin [Neurontin] 600 mg PO Q6HR 06/13/22 10/06/22 Hydroxychloroquine [Plaquenil] 400 mg PO DAILY 06/13/22 10/06/22 Levothyroxine [Synthroid] 125 mcg PO QDAC 06/13/22 10/06/22 Rivaroxaban [Xarelto] 20 mg PO DAILY 06/13/22 10/06/22 Ropinirole HCl 0.25 mg PO BID 06/13/22 10/06/22 Rosuvastatin Calcium [Crestor] 20 mg PO HS 06/13/22 10/06/22 Sacubitril/Valsartan [Entresto 97 1 each PO BID 06/13/22 10/06/22 mg-103 mg Tablet] Sertraline HCl 100 mg PO DAILY 06/13/22 10/06/22 carvediloL [Coreg] 3.125 mg PO BID 06/13/22 10/06/22 mycophenolate mofetiL [Cellcept] 250 mg PO BID 06/13/22 10/06/22 Potassium Chloride [K-Dur] 20 meq PO DAILY #4 tablet 10/06/22 Ondansetron Odt [Zofran] 4 mg TL Q6H PRN #10 tablet 10/11/22 - Allergies Allergies/Adverse Reactions: Allergies Allergy/AdvReac Type Severity Reaction Status Date / Time codeine Allergy Emesis Verified 10/18/22 02:13 lisinopril Allergy Edema Verified 10/18/22 02:13 - Social History Does the pt smoke?: No Smoking Status: Never smoker Does the pt drink ETOH?: No Does the pt have substance abuse?: No - Immunizations Immunizations are current?: Yes - POLST Patient has POLST: No PD ED PE NORMAL - Vitals Vital signs reviewed: Yes (Within normal limits) - General General: Other (Patient has prominent tremoring in all extremities.). No: Alert and oriented X 3 (Alert and orientated to person and place) - HEENT HEENT: PERRL, EOMI, Other (There is dried blood around the mouth and lips. There is no subluxation of the teeth. There is no active bleeding or obvious laceration on exam.) - Neck Neck: Other (C-collar in place.) - Cardiac Cardiac: RRR, No murmur, No gallop, Strong equal pulses - Respiratory Respiratory: No respiratory distress, Clear bilaterally - Abdomen Abdomen: Normal bowel sounds, Soft, Non tender, No organomegaly - Female Female : Deferred - Rectal Rectal: Deferred - Derm Derm: Normal color - Extremities Extremities: No deformity - Neuro Neuro: soccer commentator 2-12 intact, Other (Active tremoring in all extremities however patient does follow commands. There is no focal or lateralizing neurologic deficit.). No: Alert and oriented X 3 (Alert and orientated to person and place) Eye Opening: Spontaneous Motor: Obeys Commands Verbal: Confused GCS Score: 14 Results - Vitals Vitals: Vital Signs - 24 hr 10/18/22 10/18/22 10/18/22 02:13 02:20 03:35 Temperature 37.1 C Heart Rate 75 86 74 Respiratory 20 17 16 Rate Blood Pressure 122/69 100/74 90/58 L O2 Saturation 98 96 100 If not protocol 5 : Oxygen Flow, liters/minute 10/18/22 10/18/22 10/18/22 04:03 04:41 05:20 Temperature Heart Rate 66 65 64 Respiratory 19 16 18 Rate Blood Pressure 105/61 98/57 L 143/71 H O2 Saturation 100 98 100 If not protocol 3 3 : Oxygen Flow, liters/minute 10/18/22 05:30 Temperature Heart Rate 61 Respiratory 19 Rate Blood Pressure 116/73 O2 Saturation 100 If not protocol 3 : Oxygen Flow, liters/minute Oxygen O2 Source Nasal cannula - Labs Labs: Laboratory Tests 10/18/22 10/18/22 10/18/22 02:29 02:29 02:29 WBC 7.6 RBC 3.93 L Hgb 11.8 L Hct 38.5 MCV 98.0 MCH 30.0 MCHC 30.6 L RDW 16.8 H Plt Count 190 MPV 9.7 Neut # (Auto) 5.4 Lymph # (Auto) 1.0 L [place] # (Auto) 1.1 H Eos # (Auto) 0.0 Baso # (Auto) 0.1 Absolute Nucleated RBC 0.00 Nucleated RBC % 0.0 PT 26.8 H INR 2.5 H APTT 33.0 Sodium 136 Potassium 3.6 Chloride 99 L Carbon Dioxide 24 Anion Gap 13.0 BUN 15 Creatinine 1.1 H Estimated GFR (MDRD) 49 L Glucose 118 H Calcium 8.9 Total Bilirubin 0.6 AST 31 ALT 24 Alkaline Phosphatase 31 L Total Protein 6.1 L Albumin 3.5 Globulin 2.6 Albumin/Globulin Ratio 1.3 Lipase 38 Urine Color Urine Clarity Urine pH Ur Specific Robert Urine Protein Urine Glucose (UA) Urine Ketones Urine Occult Blood Urine Nitrite Urine Bilirubin Urine Urobilinogen Ur Leukocyte Esterase Ur Microscopic Review Urine Culture Comments Urine Opiates Screen Ur Oxycodone Screen Urine Methadone Screen Ur Propoxyphene Screen Ur Barbiturates Screen Ur Tricyclics Screen Ur Phencyclidine Scrn Ur Amphetamine Screen U Methamphetamines Scrn U Benzodiazepines Scrn Urine Cocaine Screen U Cannabinoids Screen Ethyl Alcohol < 5.0 10/18/22 02:49 WBC RBC Hgb Hct MCV MCH MCHC RDW Plt Count MPV Neut # (Auto) Lymph # (Auto) [place] # (Auto) Eos # (Auto) Baso # (Auto) Absolute Nucleated RBC Nucleated RBC % PT INR APTT Sodium Potassium Chloride Carbon Dioxide Anion Gap BUN Creatinine Estimated GFR (MDRD) Glucose Calcium Total Bilirubin AST ALT Alkaline Phosphatase Total Protein Albumin Globulin Albumin/Globulin Ratio Lipase Urine Color YELLOW Urine Clarity CLEAR Urine pH 6.0 Ur Specific Robert 1.020 Urine Protein NEGATIVE Urine Glucose (UA) NEGATIVE Urine Ketones NEGATIVE Urine Occult Blood NEGATIVE Urine Nitrite NEGATIVE Urine Bilirubin NEGATIVE Urine Urobilinogen 0.2 (NORMAL) Ur Leukocyte Esterase NEGATIVE Ur Microscopic Review NOT INDICATED Urine Culture Comments NOT INDICATED Urine Opiates Screen NEGATIVE Ur Oxycodone Screen NEGATIVE Urine Methadone Screen NEGATIVE Ur Propoxyphene Screen NEGATIVE Ur Barbiturates Screen NEGATIVE Ur Tricyclics Screen POSITIVE H Ur Phencyclidine Scrn NEGATIVE Ur Amphetamine Screen NEGATIVE U Methamphetamines Scrn NEGATIVE U Benzodiazepines Scrn NEGATIVE Urine Cocaine Screen NEGATIVE U Cannabinoids Screen NEGATIVE Ethyl Alcohol PD Medical Decision Making - ED course Complexity details: reviewed old records, reviewed results, re-evaluated patient, d/w patient, d/w family Drug Therapy Requiring Monitoring for Toxicity: IV hydromorphone, IV Versed. ED course: Patient 72-year-old female presenting to the emergency department after ground- level fall on Coumadin. History worsening tremor disorder which EMS reports was secondary to Sjogren syndrome. Patient was some confusion on arrival to the emergency department. Disorientated to time. Some dried blood around the mouth but no crepitation, step-off to the jaw or active bleeding identified. Comprehensive labs ordered demonstrated a low level anemia as well as an INR that is therapeutic at 2.5. Patient had persistent tremoring despite administration of med pain medication. Was given dose of Versed in order to obtain comprehensive imaging which included CT head, C-spine, chest abdomen and pelvis imaging. Unfortunately there was significant motion artifact in the initial reads on the CT head and C-spine were inadequate per the prelim radiology reports and they needed to be repeated. Patient received a second dose of Versed to accommodate this. Ultimately her CT head and C-spine were cleared for traumatic injury. The CT of her chest abdomen pelvis demonstrated a hiatal hernia but no acute findings. Family however reports that her tremor disorder has been getting progressively worse and they feel they are no longer able to care for her. I will board her here into the morning so that she can be reevaluated by social work in the a.m. At this time she will be signed out to the oncoming physician, please see their documentation for further detail. Departure - Departure Clinical Impression: Unable to care for self, Tremor, Hiatal hernia Fall Qualifiers: Encounter type: initial encounter Qualified Code(s): W19.XXXA - Unspecified fall, initial encounter Facial abrasion Qualifiers: Encounter type: initial encounter Qualified Code(s): S00.81XA - Abrasion of other part of head, initial encounter
--- NOTE | 2022-10-18 07:45 | CT Report ---
PROCEDURE: HEAD WO INDICATIONS: Head trauma, mod-severe TECHNIQUE: Noncontrast 4.5 mm thick angled axial sections acquired from the foramen magnum to the vertex. For r adiation dose reduction, the following was used: automated exposure control, adjustment of mA and/or kV according to patient size. COMPARISON: None. FINDINGS: Image quality: Excellent. CSF spaces: Basal cisterns are patent. No extra-axial fluid collections. Ventricles are normal in size and shape. Brain: No midline shift. No intracranial masses or hemorrhage. There is mild cerebral volume loss and periventricular small vessel ischemic change. Churchill-white matter interface is normal. Skull and face: Calvarium and visualized facial bones are intact, without suspicious lesions. Sinuses: Visualized sinuses and mastoids are clear. IMPRESSION: No acute intracranial abnormality. No significant discrepancy with the preliminary interpretation. Reviewed by: Irving Nash MD on 10/18/2022 7:43 AM PST Approved by: Irving Nash MD on 10/18/2022 7:43 AM PST Station ID: [id number]
--- NOTE | 2022-10-18 07:51 | CT Report ---
PROCEDURE: HEAD WO INDICATIONS: Repeat TECHNIQUE: Noncontrast 4.5 mm thick angled axial sections acquired from the foramen magnum to the vertex. For r adiation dose reduction, the following was used: automated exposure control, adjustment of mA and/or kV according to patient size. COMPARISON: CT head, 10/18/2022. FINDINGS: Image quality: There are motion artifacts. CSF spaces: Basal cisterns are patent. No extra-axial fluid collections. Ventricles are normal in size and shape. Brain: No midline shift. No intracranial masses or hemorrhage. Churchill-white matter interface is norm al. Skull and face: Calvarium and visualized facial bones are intact, without suspicious lesions. Sinuses: Visualized sinuses and mastoids are clear. IMPRESSION: No acute intracranial abnormality. No significant discrepancy with the preliminary interpretation. Reviewed by: Irving Nash MD on 10/18/2022 7:50 AM PST Approved by: Irving Nash MD on 10/18/2022 7:50 AM PST Station ID: [id number]
--- NOTE | 2022-10-18 08:00 | CT Report ---
PROCEDURE: CERVICAL SPINE WO INDICATIONS: Neck trauma, midline tenderness TECHNIQUE: Noncontrast 3 mm thick sections acquired from the skull base to the T4 level. Sagittal and coronal r eformats were then constructed. For radiation dose reduction, the following was used: automated exp osure control, adjustment of mA and/or kV according to patient size. COMPARISON: None. FINDINGS: Image quality: Mild motion artifacts. Bones: No fractures or dislocations. Degenerative disc disease at C5-C5, C5-C6 and C6-C7. Visualize d superior ribs are intact. Soft tissues: Prevertebral soft tissues are normal in thickness. No paravertebral hematomas. No ap ical pneumothoraces. IMPRESSION: There are motion artifacts. No cervical spine fractures visualized. No significant discrepancy with the preliminary interpretation. Reviewed by: Irving Nash MD on 10/18/2022 7:59 AM PST Approved by: Irving Nash MD on 10/18/2022 7:59 AM [facility] Station ID: [id number]
--- NOTE | 2022-10-18 08:01 | CT Report ---
PROCEDURE: CERVICAL SPINE WO INDICATIONS: Trauma. TECHNIQUE: Noncontrast 3 mm thick sections acquired from the skull base to the T4 level. Sagittal and coronal r eformats were then constructed. For radiation dose reduction, the following was used: automated exp osure control, adjustment of mA and/or kV according to patient size. COMPARISON: CT cervical spine,. FINDINGS: Image quality: Excellent. Bones: No fractures or dislocations. Mild degenerative disc disease in cervical spine. Visualized s uperior ribs are intact. Soft tissues: Prevertebral soft tissues are normal in thickness. No paravertebral hematomas. No ap ical pneumothoraces. IMPRESSION: No acute cervical spine injuries. No significant discrepancy with the preliminary intubation. Reviewed by: Irving Nash MD on 10/18/2022 7:59 AM PST Approved by: Irving Nash MD on 10/18/2022 7:59 AM PST Station ID: [id number]
--- NOTE | 2022-10-18 08:23 | CT Report ---
PROCEDURE: ABDOMEN/PELVIS W INDICATIONS: Abdominal trauma, penetrating CONTRAST: Omni 300 100ml TECHNIQUE: After the administration of intravenous contrast, 5 mm thick sections acquired from the diaphragms to the symphysis. 5 mm thick coronal and sagittal reformats were acquired. For radiation dose reducti on, the following was used: automated exposure control, adjustment of mA and/or kV according to alvin ent size. COMPARISON: Same day chest CT. FINDINGS: Image quality: Excellent. ABDOMEN: Lung bases: Please see dedicated chest CT for further discussion. Large hiatal hernia containing the stomach and a segment of nondistended transverse colon. Solid organs: Liver and spleen are normal in size and enhancement. Fluid attenuating cyst in segment 6 of the liver, benign. Gallbladder is absent. Biliary system is non dilated. Pancreas enhances no rmally. No adrenal nodules. Kidneys demonstrate normal size and enhancement, without hydronephrosis . Peritoneum and bowel: Bowel loops demonstrate normal wall thickness and caliber. No free fluid or a ir. Nodes and vessels: No retroperitoneal or mesenteric adenopathy by size criteria. Aorta and inferior vena cava are normal in size. Miscellaneous: No ventral hernias. PELVIS: Genitourinary: Bladder wall thickness is normal. Bulky calcifications within the uterus, possibly c alcified fibroids. Miscellaneous: No inguinal hernias or adenopathy. Bones: No suspicious bony lesions. No vertebral body compression fractures. Grade 1 retrolisthesis of L3 on L4. IMPRESSION: 1. No acute abnormality. No evidence of acute hepatic injury to the abdomen or pelvis. 2. Please see dedicated chest CT for further discussion. Agree with preliminary report. Reviewed by: Rahul Moran on 10/18/2022 8:22 AM [facility] Approved by: Rahul Moran on 10/18/2022 8:22 AM PST Station ID: [id number]
--- NOTE | 2022-10-18 08:30 | CT Report ---
PROCEDURE: CHEST W INDICATIONS: Chest trauma, blunt, low energy CONTRAST:Omni 300 100ml TECHNIQUE: After the administration of intravenous contrast, 1 mm axial images were acquired from the pulmonary apices through the posterior costophrenic angles. Axial 5 mm soft tissue kernel reconstructions were performed as well as 8 mm axial MIP and coronal and sagittal 5 mm reformations. For radiation dose reduction, the following was used: automated exposure control, adjustment of mA and/or kV according to patient size. COMPARISON: Same day CT abdomen and pelvis. FINDINGS: Image quality: Mildly suboptimal due to motion artifact. Lungs and pleura: No acute air space opacities. No pleural effusions or pneumothorax. Central and peripheral airways are patent and normal in caliber. Left basilar atelectasis. Mediastinum: Normal aorta, without evidence of acute aortic syndrome. Trace coronary calcifications. Large hiatal hernia containing the stomach and a nonobstructed segment of the splenic flexure. Bones and chest wall: No suspicious bony lesions. No vertebral body compression fractures. No axil ge or supraclavicular adenopathy by size criteria. The thyroid is diminutive. Abdomen: Visualized upper abdominal solid organs appear normal. Upper abdominal bowel loops are nor mal in caliber. IMPRESSION: No evidence of acute injury to the chest. Diminutive thyroid, which may indicate dysfunction. Correlate with thyroid labs if there is no histor y of thyroid disorder. Agree with preliminary report. Reviewed by: Rahul Moran on 10/18/2022 8:29 AM [facility] Approved by: Rahul Moran on 10/18/2022 8:29 AM [facility] Station ID: [id number]
[2022-10-18 11:22] VITALS: BP 90/52
--- NOTE | 2022-10-18 13:59 | ED Physician Documentation ---
ED Addendum - Addendum Addendum: Patient was signed out to me by overnight physician pending social work consultation. She was seen after a fall and has been having increasing weakness and tremors over the last month.She was given several doses of Versed to be still for the CT scan. She had multiple CT scans without any acute findings. Her labs were also reviewed by the overnight physician and No reason for admission was found. A social work consult was placed as family had stated that she was becoming increasingly more difficult to care for at home. They do have an appointment with a new PCP tomorrow. Social work did evaluate the patient at the bedside and also spoke with family members. They were given a number of resources and are comfortable with taking patient home at this time with close outpatient follow-up. Patient is also wanting to go home. She was able to ambulate here with assistance and a walker. She does have a walker at home. Departure - Departure Disposition: 01 Home, Self Care Clinical Impression: Tremor, Hiatal hernia Fall Qualifiers: Encounter type: initial encounter Qualified Code(s): W19.XXXA - Unspecified fall, initial encounter Facial abrasion Qualifiers: Encounter type: initial encounter Qualified Code(s): S00.81XA - Abrasion of other part of head, initial encounter Condition: Stable Instructions: ED Fall Dizziness Weakn Balance Comments: You were evaluated after a fall with multiple CT scans not showing any acute injuries. Based on your testing last night there was no indication for admission to the hospital. You were seen by our social insurance analyst who did give you several outpatient resources to get additional help at home. Please have close follow-up with your primary care doctor to discuss your ongoing falls and weakness. Discharge Date/Time: 10/18/22 14:06
== END 2022-10-18 14:06 | disposition home or self-care (01) ==
LOC: EDUNIT# → EDSEX → ED 02:12
DX: S00.81XA Abrasion of other part of head, initial encounter (principal); W18.30XA Fall on same level, unspecified, initial encounter; Z91.81 History of falling; Y93.01 Activity, walking, marching and hiking; Y92.89 Other specified places as the place of occurrence of the external cause; K44.9 Diaphragmatic hernia without obstruction or gangrene; R25.1 Tremor, unspecified; M35.00 Sjogren syndrome, unspecified; I48.91 Unspecified atrial fibrillation; E03.9 Hypothyroidism, unspecified; J45.909 Unspecified asthma, uncomplicated; Z79.01 Long term (current) use of anticoagulants; Z79.899 Other long term (current) drug therapy
CPT/HCPCS: 36415; 70450; 71260; 72125; 74177; 80053; 80306; 81003; 83690; 85025; 85610; 85730; 96374; 96375; 96376; 99284; 99285; G0480; Q9967; 80320; 81001; 87086

== ENCOUNTER 2022-12-11 16:30 | Outpatient (CLI) | payer MEDICARE, OTHER | END 2022-12-11 23:59 | disposition critical access hospital (66) | LOC: EMS 16:30 | DX: R53.1 Weakness (principal); R26.81 Unsteadiness on feet | CPT/HCPCS: A0425; A0429 ==

== ENCOUNTER 2022-12-11 16:52 | Emergency (ER) | payer MEDICARE, OTHER ==
--- NOTE | 2022-12-11 16:58 | ED Physician Documentation ---
History of Present Illness - Stated complaint Stated Complaint: WEAKNESS/GLF - History obtained from History obtained from: Patient - Additonal information Additional information: 72-year-old woman who has had increasing weakness with tremor over the last few months. She lives alone and has generally been walking with a walker. She is been seen for relatively frequently for weakness lately. It started in June of last year where she was bradycardic with her A-fib and her metoprolol was decreased and she has not had that problem anymore. More recently weakness with frequent falls and noted to be recurrently hypokalemic. Today she was walking up a hill without her walker and felt weak and dizzy and fell onto her backside. She has no pain. She is 100% sure she did not hit her head. PD PAST MEDICAL HISTORY - Past Medical History Cardiovascular: Atrial fibrillation Respiratory: Asthma Neuro: Peripheral neuropathy Endocrine/Autoimmune: HyPOthyroidism, Other GI: Hiatal hernia STAFFING DIRECTOR: None : None HEENT: None Psych: Depression Musculoskeletal: Chronic back pain Derm: Herpes zoster - Past Surgical History Past Surgical History: Yes General: Cholecystectomy, Appendectomy Ortho: Arthroscopic surgery, Other - Present Medications Home Medications: Ambulatory Orders Medication Instructions Recorded Confirmed Amiodarone [Pacerone] 200 mg PO BID 06/13/22 10/18/22 Amitriptyline HCl 50 mg PO HS 06/13/22 10/18/22 Calcium Citrate 400 mg PO BID 06/13/22 10/18/22 Cevimeline HCl [Evoxac] 30 mg PO TID 06/13/22 10/18/22 Gabapentin [Neurontin] 600 mg PO Q6HR 06/13/22 10/18/22 Hydroxychloroquine [Plaquenil] 400 mg PO DAILY 06/13/22 10/18/22 Levothyroxine [Synthroid] 125 mcg PO QDAC 06/13/22 10/18/22 Rivaroxaban [Xarelto] 20 mg PO QDDINNER 06/13/22 10/18/22 Ropinirole HCl 0.5 mg PO BID 06/13/22 10/18/22 Rosuvastatin Calcium [Crestor] 20 mg PO HS 06/13/22 10/18/22 Sacubitril/Valsartan [Entresto 97 1 each PO BID 06/13/22 10/06/22 mg-103 mg Tablet] Sertraline HCl 100 mg PO DAILY 06/13/22 10/18/22 carvediloL [Coreg] 3.125 mg PO BID 06/13/22 10/18/22 mycophenolate mofetiL [Cellcept] 500 mg PO BID 06/13/22 10/18/22 Ondansetron Odt [Zofran] 4 mg TL Q6H PRN #10 tablet 10/11/22 10/18/22 Cholecalciferol (Vitamin D3) 125 mcg PO DAILY 10/18/22 10/18/22 [Vitamin D3] - Allergies Allergies/Adverse Reactions: Allergies Allergy/AdvReac Type Severity Reaction Status Date / Time codeine Allergy Emesis Verified 12/11/22 17:04 lisinopril Allergy Edema Verified 12/11/22 17:04 - Social History Does the pt smoke?: No Smoking Status: Never smoker Does the pt drink ETOH?: No Does the pt have substance abuse?: No - Immunizations Immunizations are current?: Yes - POLST Patient has POLST: No PD ED PE NORMAL - Vitals Vital signs reviewed: Yes - General General: Alert and oriented X 3, No acute distress - HEENT HEENT: PERRL, EOMI, Pharynx benign - Neck Neck: Supple, no meningeal sign, No bony TTP - Cardiac Cardiac: RRR, No murmur - Respiratory Respiratory: No respiratory distress, Clear bilaterally - Abdomen Abdomen: Non tender - Neuro Neuro: Alert and oriented X 3, No motor deficit, No sensory deficit, Normal speech Eye Opening: Spontaneous Motor: Obeys Commands Verbal: Oriented GCS Score: 15 - Psych Psych: Normal mood, Normal affect Results - Vitals Vitals: Vital Signs - 24 hr 12/11/22 16:56 Temperature 36.9 C Heart Rate 61 Respiratory 16 Rate Blood Pressure 161/96 H O2 Saturation 98 Oxygen O2 Source Room air - Labs Labs: Laboratory Tests 12/11/22 12/11/22 17:02 17:02 WBC 3.6 L RBC 3.74 L Hgb 11.6 L Hct 37.2 MCV 99.5 H MCH 31.0 MCHC 31.2 L RDW 14.4 Plt Count 138 MPV 9.6 Neut # (Auto) 2.2 Lymph # (Auto) 0.8 L [place] # (Auto) 0.5 Eos # (Auto) 0.0 Baso # (Auto) 0.0 Absolute Nucleated RBC 0.00 Nucleated RBC % 0.0 Sodium 142 Potassium 3.4 L Chloride 106 Carbon Dioxide 30 Anion Gap 6.0 BUN 13 Creatinine 1.3 H Estimated GFR (MDRD) 40 L Glucose 96 Calcium 8.5 Magnesium 1.9 PD Medical Decision Making - ED course ED course: 72-year-old woman who is supposed to be using a walker fell while not using her walker today. She has chronic weakness. Labs reviewed showing a CBC with mild anemia and lymphopenia. Chemistry panel showing mild hypokalemia not needing repletion and mild decreased renal function. Departure - Departure Disposition: 01 Home, Self Care Clinical Impression: Fall Qualifiers: Encounter type: initial encounter Qualified Code(s): W19.XXXA - Unspecified fall, initial encounter Condition: Good Record reviewed to determine appropriate education?: Yes Instructions: ED Weakness UKO Comments: I think following up with a neurologist regarding her weakness is absolutely appropriate, I would encourage you to use your walker more religiously. Return for new or worsening symptoms.
[2022-12-11 17:06] LABS: BASOPHILS % (AUTO) 0.8 %; HCT - HEMATOCRIT 37.2 % (37.0-47.0); HGB - HEMOGLOBIN 11.6 g/dL (12.0-16.0); LYMPHOCYTES # (AUTO) 0.8 10^3/uL (1.5-3.5); LYMPHOCYTES % (AUTO) 23.1 %; MEAN CORPUSCULAR HGB CONC 31.2 g/dL (32.0-36.0); MEAN CORPUSCULAR VOLUME 99.5 fL (81.0-99.0); MEAN PLATELET VOLUME 9.6 fL (7.9-10.8); MONOCYTES # (AUTO) 0.5 10^3/uL (0.0-1.0); MONOCYTES % (AUTO) 14.6 %; NEUTROPHILS # (AUTO) 2.2 10^3/uL (1.5-6.6); NEUTROPHILS % (AUTO) 60.9 %; PLT - PLATELET COUNT 138 10^3/uL (130-450); RED BLOOD COUNT 3.74 10^6/uL (4.20-5.40); RED CELL DISTRIBUTION WIDTH 14.4 % (12.0-15.0); WHITE BLOOD COUNT 3.6 x10^3/uL (4.8-10.8)
[2022-12-11 17:14] LABS: CALCIUM 8.5 mg/dL (8.5-10.3); CREATININE 1.3 mg/dL (0.4-1.0); MAGNESIUM 1.9 mg/dL (1.7-2.8); POTASSIUM 3.4 mmol/L (3.5-5.0)
[2022-12-11 17:17] VITALS: BP 144/81
== END 2022-12-11 17:40 | disposition home or self-care (01) ==
LOC: EDUNIT# → ED 16:52
DX: R53.1 Weakness (principal); W18.30XA Fall on same level, unspecified, initial encounter; Z91.81 History of falling; Y93.01 Activity, walking, marching and hiking
CPT/HCPCS: 36415; 80048; 83735; 85025; 99283

== ENCOUNTER 2022-12-17 14:08 | Outpatient (CLI) | payer MEDICARE, OTHER | END 2022-12-17 14:09 | disposition EMS.NT | LOC: EMS 14:08 | DX: Z03.89 Encounter for observation for other suspected diseases and conditions ruled out (principal) ==

== ENCOUNTER 2023-06-27 11:13 | Outpatient (CLI) | payer MEDICARE, OTHER ==
[2023-06-28] MEDS ORDERED: ACETAMINOPHEN 325 MG TABLET PO PRN (13:48)
[2023-06-28] MEDS ORDERED: SODIUM CHLORIDE FLUSH 0.9% 10 ML SYRINGE IVP PRN (13:48)
[2023-06-28] MEDS ORDERED: HYDROcod/ACETAM 10 MG/325 MG TABLET PO PRN (13:48)
[2023-06-28] MEDS ORDERED: ONDANSETRON 4 MG/2 ML VIAL IVP PRN (13:48)
[2023-06-28] MEDS ORDERED: SODIUM CHLORIDE FLUSH 0.9% 10 ML SYRINGE IVP SCH (17:00)
== END 2023-06-27 11:14 | disposition critical access hospital (66) ==
LOC: EMS 11:13
DX: R25.1 Tremor, unspecified (principal); R53.1 Weakness; R42 Dizziness and giddiness
CPT/HCPCS: A0425; A0429

== ENCOUNTER 2023-06-27 11:41 | Inpatient (IN) | payer MEDICARE, OTHER ==
--- NOTE | 2023-06-27 12:01 | ED Physician Documentation ---
History of Present Illness - Stated complaint Stated Complaint: GEN WEAKNESS - Chief complaint Chief Complaint: General - History obtained from History obtained from: Patient - Additonal information Additional information: 73-year-old female who reports a past medical history of Sjogren's as well as lupus and atrial fibrillation presents with several months of increasing weakness as well as recurrent falls. The patient has been seen multiple times over the past year for weakness and falls and often hypokalemia. She states that she has had no real improvement in her symptoms over the several months, frequently feeling like her legs will give out when she tries to walk or get out of bed. She has fallen repeatedly onto her legs and has multiple bruises on her legs. She states today she fell while getting out of bed after her legs felt weak. She did not hit her head, denies any injuries during the fall. She does generally feel weak, denies any more specific symptoms and has not had any fever or chills, no chest pain no difficulty breathing, no heart palpitations, no abdominal pain nausea vomiting diarrhea, no dysuria urgency or frequency. She states she has good access to food and water. She is currently living in a hotel and is apparently trying to find her has found a roommate and they together are going to pursue living together in a house or apartment. The patient does not want to live in a assisted living facility. She is however concerned that she may have Parkinson's or dementia. Review of Systems Constitutional: reports: Fatigue. denies: Fever, Chills, Myalgias, Weight Loss, Sweats Eyes: reports: Reviewed and negative Ears: reports: Reviewed and negative Nose: reports: Reviewed and negative Throat: reports: Reviewed and negative Cardiac: reports: Reviewed and negative Respiratory: reports: Reviewed and negative GI: reports: Reviewed and negative : reports: Reviewed and negative Skin: reports: Other (Leg contusions) Musculoskeletal: reports: Other (Bilateral leg weakness.) Neurologic: reports: Generalized weakness. denies: Focal weakness, Numbness, Difficulty speaking, Near syncope, Syncope, Seizure, Confused, Altered mental status, Unresponsive, Headache, Head injury, LOC Psychiatric: reports: Reviewed and negative PD PAST MEDICAL HISTORY - Past Medical History Past Medical History: Yes Cardiovascular: Atrial fibrillation Respiratory: Asthma Neuro: Peripheral neuropathy Endocrine/Autoimmune: HyPOthyroidism, Other GI: Hiatal hernia SYRUP MAKER: None : None HEENT: None Psych: Depression Musculoskeletal: Chronic back pain Derm: Herpes zoster - Past Surgical History Past Surgical History: Yes General: Cholecystectomy, Appendectomy Ortho: Arthroscopic surgery, Other - Present Medications Home Medications: Ambulatory Orders Medication Instructions Recorded Confirmed Amiodarone [Pacerone] 200 mg PO BID 06/13/22 10/18/22 Amitriptyline HCl 50 mg PO HS 06/13/22 10/18/22 Calcium Citrate 400 mg PO BID 06/13/22 10/18/22 Cevimeline HCl [Evoxac] 30 mg PO TID 06/13/22 10/18/22 Gabapentin [Neurontin] 600 mg PO Q6HR 06/13/22 10/18/22 Hydroxychloroquine [Plaquenil] 400 mg PO DAILY 06/13/22 10/18/22 Levothyroxine [Synthroid] 125 mcg PO QDAC 06/13/22 10/18/22 Rivaroxaban [Xarelto] 20 mg PO QDDINNER 06/13/22 10/18/22 Ropinirole HCl 0.5 mg PO BID 06/13/22 10/18/22 Rosuvastatin Calcium [Crestor] 20 mg PO HS 06/13/22 10/18/22 Sacubitril/Valsartan [Entresto 97 1 each PO BID 06/13/22 10/06/22 mg-103 mg Tablet] Sertraline HCl 100 mg PO DAILY 06/13/22 10/18/22 carvediloL [Coreg] 3.125 mg PO BID 06/13/22 10/18/22 mycophenolate mofetiL [Cellcept] 500 mg PO BID 06/13/22 10/18/22 Ondansetron Odt [Zofran] 4 mg TL Q6H PRN #10 tablet 10/11/22 10/18/22 Cholecalciferol (Vitamin D3) 125 mcg PO DAILY 10/18/22 10/18/22 [Vitamin D3] Potassium Chloride [Klor-Con] 20 meq PO DAILY #10 packet 06/27/23 cephALEXin [Keflex] 500 mg PO BID 7 Days #14 cap 06/27/23 - Allergies Allergies/Adverse Reactions: Allergies Allergy/AdvReac Type Severity Reaction Status Date / Time codeine Allergy Emesis Verified 06/27/23 11:51 lisinopril Allergy Edema Verified 06/27/23 11:51 - Social History Does the pt smoke?: No Smoking Status: Never smoker Does the pt drink ETOH?: No Does the pt have substance abuse?: No - Immunizations Immunizations are current?: Yes - POLST Patient has POLST: No PD ED PE NORMAL - Vitals Vital signs reviewed: Yes - General General: Alert and oriented X 3, No acute distress, Other (Appears somewhat thin, nontoxic but chronically ill-appearing) - HEENT HEENT: Atraumatic, Moist mucous membranes - Neck Neck: Supple, no meningeal sign, No JVD - Cardiac Cardiac: No murmur, No gallop, No rub, Strong equal pulses, Other (Slow atrial fibrillation) - Respiratory Respiratory: No respiratory distress, Clear bilaterally - Abdomen Abdomen: Normal bowel sounds, Soft, Non tender, Non distended - Derm Derm: Normal color, Warm and dry (Abrasion right elbow), Other (Bruises all over her knees bilaterally and lower legs.) - Extremities Extremities: No deformity, No tenderness to palpate, Normal ROM s pain, No edema, No calf tenderness / cord - Neuro Neuro: Alert and oriented X 3, engine specialist 2-12 intact, No motor deficit, No sensory deficit, Normal speech Eye Opening: Spontaneous Motor: Obeys Commands Verbal: Oriented GCS Score: 15 - Psych Psych: Normal mood, Normal affect Results - Vitals Vitals: Vital Signs - 24 hr 06/27/23 06/27/23 06/27/23 11:52 12:09 14:09 Temperature 37 C Heart Rate 49 L 53 L 60 Heart Rate [ Sitting] Heart Rate [ Standing] Heart Rate [ Supine] Respiratory 16 18 17 Rate Blood Pressure 95/64 107/73 93/65 Blood Pressure [Sitting] Blood Pressure [Standing] Blood Pressure [Supine] O2 Saturation 99 99 100 06/27/23 06/27/23 06/27/23 15:11 16:16 16:43 Temperature Heart Rate 55 L 58 L Heart Rate [ 59 L Sitting] Heart Rate [ 129 H Standing] Heart Rate [ 49 L Supine] Respiratory 17 18 Rate Blood Pressure 99/72 96/68 Blood Pressure 78/53 L [Sitting] Blood Pressure 40/31 L [Standing] Blood Pressure 101/65 [Supine] O2 Saturation 95 100 06/27/23 06/27/23 06/27/23 17:56 18:10 18:11 Temperature 36.7 C Heart Rate 57 L Heart Rate [ 79 Sitting] Heart Rate [ 69 Standing] Heart Rate [ 57 L Supine] Respiratory 17 Rate Blood Pressure 103/64 Blood Pressure 94/58 L [Sitting] Blood Pressure 68/45 L [Standing] Blood Pressure 110/66 [Supine] O2 Saturation 95 06/27/23 20:00 Temperature Heart Rate 52 L Heart Rate [ Sitting] Heart Rate [ Standing] Heart Rate [ Supine] Respiratory 16 Rate Blood Pressure 93/52 L Blood Pressure [Sitting] Blood Pressure [Standing] Blood Pressure [Supine] O2 Saturation 96 Oxygen O2 Source Room air - EKG (time done) No standard instances EKG releavant findings:: EKG personally interpreted by author of this note. Relevant findings are: Rate: Rate (enter#) (48), Luis Rhythm: Atrial fibrillation, Abnormal P waves Intervals: Normal NC, LBBB Compare to prior EKG: Unchanged from prior EKG (prior LBBB, prior ectopic atrial rhythm) Computer interpretation: Agree with computer - Labs Labs: Laboratory Tests 06/27/23 06/27/23 06/27/23 12:09 12:09 12:09 WBC 3.6 L RBC 4.01 L Hgb 11.9 L Hct 35.6 L MCV 88.8 MCH 29.7 MCHC 33.4 RDW 14.4 Plt Count 119 L MPV 9.8 Neut # (Auto) 2.3 Lymph # (Auto) 0.8 L Dickinson # (Auto) 0.5 Eos # (Auto) 0.0 Baso # (Auto) 0.0 Absolute Nucleated RBC 0.00 Nucleated RBC % 0.0 PT INR Sodium 140 Potassium 2.1 L* Chloride 96 L Carbon Dioxide 29 Anion Gap 15.0 H BUN 23 H Creatinine 1.5 H Estimated GFR (MDRD) 34 L Glucose 61 L Calcium 8.3 L Magnesium 1.9 Total Bilirubin 0.6 AST 42 ALT 26 Alkaline Phosphatase 46 Troponin I High Sens Total Protein 5.1 L Albumin 3.0 L Globulin 2.1 Albumin/Globulin Ratio 1.4 Lipase 12 Urine Color Urine Clarity Urine pH Ur Specific [place] Urine Protein Urine Glucose (UA) Urine Ketones Urine Occult Blood Urine Nitrite Urine Bilirubin Urine Urobilinogen Ur Leukocyte Esterase Urine RBC Urine WBC Ur Squamous Epith Cells Urine Bacteria Urine Casts Ur Microscopic Review Urine Culture Comments Urine Opiates Screen Ur Oxycodone Screen Urine Methadone Screen Ur Propoxyphene Screen Ur Barbiturates Screen Ur Tricyclics Screen Ur Phencyclidine Scrn Ur Amphetamine Screen U Methamphetamines Scrn U Benzodiazepines Scrn Urine Cocaine Screen U Cannabinoids Screen 06/27/23 06/27/23 06/27/23 13:13 13:13 13:30 WBC RBC Hgb Hct MCV MCH MCHC RDW Plt Count MPV Neut # (Auto) Lymph # (Auto) [place] # (Auto) Eos # (Auto) Baso # (Auto) Absolute Nucleated RBC Nucleated RBC % PT 17.4 H INR 1.6 H Sodium Potassium Chloride Carbon Dioxide Anion Gap BUN Creatinine Estimated GFR (MDRD) Glucose Calcium Magnesium Total Bilirubin AST ALT Alkaline Phosphatase Troponin I High Sens 45.9 H* Total Protein Albumin Globulin Albumin/Globulin Ratio Lipase Urine Color YELLOW Urine Clarity CLEAR Urine pH 6.0 Ur Specific [place] 1.020 Urine Protein 100 H Urine Glucose (UA) NEGATIVE Urine Ketones 15 H Urine Occult Blood SMALL H Urine Nitrite NEGATIVE Urine Bilirubin NEGATIVE Urine Urobilinogen 0.2 (NORMAL) Ur Leukocyte Esterase SMALL H Urine RBC 0-5 Urine WBC 6-10 H Ur Squamous Epith Cells FEW Squamous Urine Bacteria Few Urine Casts 3-5 Hyaline Casts Ur Microscopic Review INDICATED Urine Culture Comments INDICATED Urine Opiates Screen NEGATIVE Ur Oxycodone Screen NEGATIVE Urine Methadone Screen NEGATIVE Ur Propoxyphene Screen NEGATIVE Ur Barbiturates Screen NEGATIVE Ur Tricyclics Screen POSITIVE H Ur Phencyclidine Scrn NEGATIVE Ur Amphetamine Screen NEGATIVE U Methamphetamines Scrn NEGATIVE U Benzodiazepines Scrn NEGATIVE Urine Cocaine Screen NEGATIVE U Cannabinoids Screen POSITIVE H 06/27/23 06/27/23 15:29 18:50 WBC RBC Hgb Hct MCV MCH MCHC RDW Plt Count MPV Neut # (Auto) Lymph # (Auto) Dickinson # (Auto) Eos # (Auto) Baso # (Auto) Absolute Nucleated RBC Nucleated RBC % PT INR Sodium 142 Potassium 2.6 L Chloride 98 L Carbon Dioxide 29 Anion Gap 15.0 H BUN 20 Creatinine 1.4 H Estimated GFR (MDRD) 37 L Glucose 102 Calcium 8.5 Magnesium Total Bilirubin AST ALT Alkaline Phosphatase Troponin I High Sens 47.0 H* Total Protein Albumin Globulin Albumin/Globulin Ratio Lipase Urine Color Urine Clarity Urine pH Ur Specific [place] Urine Protein Urine Glucose (UA) Urine Ketones Urine Occult Blood Urine Nitrite Urine Bilirubin Urine Urobilinogen Ur Leukocyte Esterase Urine RBC Urine WBC Ur Squamous Epith Cells Urine Bacteria Urine Casts Ur Microscopic Review Urine Culture Comments Urine Opiates Screen Ur Oxycodone Screen Urine Methadone Screen Ur Propoxyphene Screen Ur Barbiturates Screen Ur Tricyclics Screen Ur Phencyclidine Scrn Ur Amphetamine Screen U Methamphetamines Scrn U Benzodiazepines Scrn Urine Cocaine Screen U Cannabinoids Screen PD Medical Decision Making - ED course Complexity details: reviewed old records, reviewed results, re-evaluated patient, considered differential, d/w patient ED course: 73-year-old female presented with generalized weakness And recurrent falls. Symptoms have been present for quite some time though worse recently. The patient has been seen several times in the past for same. On arrival here, the patient appears frail, chronically ill but in no acute distress. She is somewhat hypotensive therefore she was given the remainder of the liter fluid that was started in the field by EMS and we obtained labs to evaluate for possible infection, electrolyte disturbances, dehydration or acute kidney injury or other sources of her symptoms. Her labs revealed a low potassium at 2.1, and mild acute kidney injury with a creatinine of 1.5 up from her baseline of 1.3 though her GFR went down into the 30s from baseline in the 50s. Magnesium was 1.9, the remainder of her labs are relatively stable. Her urinalysis is suggestive of possible infection and was sent for culture. I gave her 1 g of IV ceftriaxone for this and anticipated sending her home on Keflex.The patient was given potassium replacement as well as D5 NS with potassium and she tolerated p.o. well here. We were anticipating possible discharge home however patient was assisted up to the bathroom and had a extremely unsteady gait and nearly fell despite full assistance from tech. She was also substantially orthostatic. She was given an additional liter of normal saline and her remained orthos tatic on recheck thus I did recommend hospitalization for orthostatic hypotension and recurrent falls. This may be medication induced as patient is on a number of medications that could be potentiating this, versus dehydration. I did add a troponin which was elevated at 45 and a repeat remained flat at 47 thus lower suspicion for acute ACS and suspect this is demand related. I have recommended we will continue IV hydration here and patient can take p.o. as desired. We will recheck her potassium and replace again as needed. I will hold patient's cardiac meds for now as well. Patient is not complaining of any chest pain however and had no acute ischemic changes on EKG though slow atrial fibrillation noted. We do not have any beds available at this hospital at this time and have reached out to local facilities but no accepting facilities at this time. Departure - Departure Clinical Impression: Hypokalemia, Acute urinary tract infection, Acute kidney injury, Gait difficulty, Orthostatic hypotension Condition: Good Instructions: Hypokalemia Dc, ED UTI Cystitis Female Prescriptions: cephALEXin [Keflex] 500 mg PO BID 7 Days #14 cap Potassium Chloride [Klor-Con] 20 meq PO DAILY #10 packet Comments: Please follow-up with your specialist as planned in the next couple of weeks and establish care locally with a primary care provider. You will need to have your blood redrawn within the next week to check your kidney function and electrolytes. Please try to stay well-hydrated and ensure adequate nutrients in your diet. I did discuss the possibility of needing fci placement due to your unsteady gait however at this time you would like to continue living independently however if you change your mind or have recurrent falls, we may need to consider placement in a fci until you get your strength back. Forms: PCP List
[2023-06-27 12:13] LABS: BASOPHILS % (AUTO) 0.3 %; HCT - HEMATOCRIT 35.6 % (37.0-47.0); HGB - HEMOGLOBIN 11.9 g/dL (12.0-16.0); LYMPHOCYTES # (AUTO) 0.8 10^3/uL (1.5-3.5); LYMPHOCYTES % (AUTO) 20.7 %; MEAN CORPUSCULAR HEMOGLOBIN 29.7 pg (27.0-31.0); MEAN CORPUSCULAR HGB CONC 33.4 g/dL (32.0-36.0); MEAN CORPUSCULAR VOLUME 88.8 fL (81.0-99.0); MEAN PLATELET VOLUME 9.8 fL (7.9-10.8); MONOCYTES # (AUTO) 0.5 10^3/uL (0.0-1.0); MONOCYTES % (AUTO) 13.8 %; NEUTROPHILS # (AUTO) 2.3 10^3/uL (1.5-6.6); NEUTROPHILS % (AUTO) 64.6 %; PLT - PLATELET COUNT 119 10^3/uL (130-450); RED BLOOD COUNT 4.01 10^6/uL (4.20-5.40); RED CELL DISTRIBUTION WIDTH 14.4 % (12.0-15.0); WHITE BLOOD COUNT 3.6 x10^3/uL (4.8-10.8)
[2023-06-27 12:30] LABS: ALBUMIN/GLOBULIN RATIO 1.4 (1.0-2.2); BILIRUBIN,TOTAL 0.6 mg/dL (0.2-1.0); CALCIUM 8.3 mg/dL (8.5-10.3); CREATININE 1.5 mg/dL (0.6-1.3); POTASSIUM 2.1 mmol/L (3.5-4.5); TOTAL PROTEIN 5.1 g/dL (6.4-8.9)
[2023-06-27] MEDS ORDERED: POTASSIUM CHLOR 10 MEQ/100 ML 10 MEQ/100 ML BAG IV ONE (12:45)
[2023-06-27] MEDS ORDERED: D5NS W/20 MEQ KCL 1,000 ML IV STA (12:46)
[2023-06-27] MEDS ORDERED: POTASSIUM CHLORIDE 20 MEQ/15 ML UDC PO ONE (13:00)
[2023-06-27 13:26] LABS: INR 1.6 (0.8-1.2); PT - PROTHROMBIN TIME 17.4 secs (9.9-12.6)
[2023-06-27 13:42] LABS: MUDS CUTOFF CONCENTRATIONS CUTOFF CONC BELOW:
[2023-06-27 13:56] LABS: GLUCOSE, URINE (UA) NEGATIVE (NEGATIVE); KETONES,URINE (UA) 15 mg/dL (NEGATIVE); LEUKOCYTE ESTERASE, URINE SMALL (NEGATIVE); NITRITE,URINE NEGATIVE (NEGATIVE); OCCULT BLOOD,URINE SMALL (NEGATIVE); PROTEIN,URINE 100 mg/dL (NEGATIVE); UROBILINOGEN,URINE 0.2 (NORMAL) E.U./dL (NORMAL)
[2023-06-27 13:57] LABS: CLARITY,URINE CLEAR (CLEAR)
[2023-06-27 14:00] LABS: BILIRUBIN,URINE NEGATIVE (NEGATIVE); ICTOTEST,URINE NEGATIVE
[2023-06-27 14:10] LABS: BACTERIA,URINE Few /HPF (None Seen); CASTS, URINE 3-5 Hyaline Casts /LPF; RBC,URINE 0-5 /HPF (0-5); SQUAMOUS EPITHELIAL CELL,UR FEW Squamous (<= Few)
[2023-06-27 14:11] LABS: AMPHETAMINE SCREEN,URINE NEGATIVE (NEGATIVE); BARBITURATE SCREEN,UR NEGATIVE (NEGATIVE); BENZODIAZEPINES SCREEN, URINE NEGATIVE (NEGATIVE); COCAINE SCREEN URINE NEGATIVE (NEGATIVE); METHADONE SCREEN, URINE NEGATIVE (NEGATIVE); METHAMPHETAMINES SCREEN, URINE NEGATIVE (NEGATIVE); OPIATE SCREEN, URINE NEGATIVE (NEGATIVE); OXYCODONE SCREEN, URINE NEGATIVE (NEGATIVE); PROPOXYPHENE SCREEN, URINE NEGATIVE (NEGATIVE); THC CANNABINOID SCREEN, URINE POSITIVE (NEGATIVE); TRICYCLIC ANTIDEPRESSANT,URINE POSITIVE (NEGATIVE)
[2023-06-27] MEDS ORDERED: cefTRIAXone 1 GM in SODIUM CHLORIDE 0.9% MINIBAG 100 ML IV STA (14:22)
[2023-06-27] MEDS ORDERED: cefTRIAXone 1 GM VIAL ONE (14:35)
[2023-06-27 15:51] LABS: CALCIUM 8.5 mg/dL (8.5-10.3); CREATININE 1.4 mg/dL (0.6-1.3); POTASSIUM 2.6 mmol/L (3.5-4.5)
[2023-06-27] MEDS ORDERED: POTASSIUM CHLORIDE 20 MEQ/15 ML UDC PO STA (16:10)
[2023-06-27] MEDS ORDERED: SODIUM CHLORIDE 0.9% 1,000 ML IV STA (16:43)
[2023-06-27] MEDS ORDERED: ACETAMINOPHEN 500 MG TABLET PO PRN (18:30)
[2023-06-27] MEDS ORDERED: ONDANSETRON 4 MG/2 ML VIAL IVP PRN (18:30)
--- NOTE | 2023-06-27 19:30 | XRAY Report ---
PROCEDURE: Chest 1 View X-Ray INDICATIONS: chest pain TECHNIQUE: One view of the chest was acquired. COMPARISON: None. FINDINGS: Surgical changes and devices: None. Lungs and pleura: No pleural effusions or pneumothorax. Lungs are clear. Mediastinum: Mediastinal contours appear normal. Heart size is normal. Aortic arch is calcified, indicating atherosclerosis. Large hiatal hernia. Bones and chest wall: No suspicious bony lesions. Overlying soft tissues appear unremarkable. IMPRESSION: No acute cardiopulmonary process. Large hiatal hernia. Reviewed by: Rosalva Brooks MD on 06/27/2023 7:29 PM PDT Approved by: Rosalva Brooks MD on 06/27/2023 7:29 PM PDT Station ID: [id number]
[2023-06-27] MEDS ORDERED: GABAPENTIN 100 MG CAPSULE PO STA (20:58)
--- NOTE | 2023-06-28 04:07 | ED Physician Documentation ---
ED Addendum - Addendum Addendum: 06/28/23 04:05 Patient endorsed to me by KIRA Jimenez awaiting bed availability. Slow afib overnight with HR dipping into 30s. EKG ordered. 06/28/23 04:21 EKG @0407 shows sinus bradycardia at 51. bar staff reporting HR on monitor as low as 31. Printed rhythm strip from 04:01:16 with HR NSR at 35. Patient is weak but denies lightheadedness. TSH was normal. We are correcting her potassium but given the persistent bradycardia she may need evaluation for possible pacemaker. We already called [facility] and there were no beds available but will call again with updates. 06/28/23 04:38 HR consistently in 40s dipping to high 30s. 0.4mg IV atropine ordered. d/w immanuel and DALTON maria who will call back. 06/28/23 05:41 HR improved to 40s-high 50s s/p atropine. d/w DALTON Maria hospitalist Dr. Moss who accepts in transfer for admission to telemetry. Disposition transfer Impression 1. weakness 2. symptomatic bradycardia 3. hypokalemia 4. orthostatic hypotension Condition stable
[2023-06-28] MEDS: POTASSIUM CHLOR 10 MEQ/100 ML 10 MEQ/100 ML BAG IV SCH ×4 (04:34→07:48)
[2023-06-28] MEDS ORDERED: ATROPINE 0.4 MG/ML VIAL IVP ONE (04:37)
[2023-06-28 05:36] LABS: BASOPHILS % (AUTO) 0.6 %; HCT - HEMATOCRIT 35.7 % (37.0-47.0); HGB - HEMOGLOBIN 11.8 g/dL (12.0-16.0); LYMPHOCYTES # (AUTO) 0.9 10^3/uL (1.5-3.5); LYMPHOCYTES % (AUTO) 24.2 %; MEAN CORPUSCULAR HEMOGLOBIN 29.9 pg (27.0-31.0); MEAN CORPUSCULAR HGB CONC 33.1 g/dL (32.0-36.0); MEAN CORPUSCULAR VOLUME 90.4 fL (81.0-99.0); MEAN PLATELET VOLUME 10.3 fL (7.9-10.8); MONOCYTES # (AUTO) 0.5 10^3/uL (0.0-1.0); MONOCYTES % (AUTO) 12.7 %; NEUTROPHILS # (AUTO) 2.2 10^3/uL (1.5-6.6); NEUTROPHILS % (AUTO) 61.9 %; PLT - PLATELET COUNT 111 10^3/uL (130-450); RED BLOOD COUNT 3.95 10^6/uL (4.20-5.40); RED CELL DISTRIBUTION WIDTH 14.8 % (12.0-15.0); WHITE BLOOD COUNT 3.6 x10^3/uL (4.8-10.8)
[2023-06-28 05:47] LABS: CALCIUM 7.8 mg/dL (8.5-10.3); CREATININE 1.3 mg/dL (0.6-1.3); POTASSIUM 2.6 mmol/L (3.5-4.5)
[2023-06-28] MEDS: PANTOPRAZOLE 40 MG TABLET PO SCH (06:44)
[2023-06-28] MEDS ORDERED: POTASSIUM CHLORIDE 20 MEQ/15 ML UDC PO STA (07:14)
[2023-06-28] MEDS ORDERED: D5NS W/20 MEQ KCL 1,000 ML IV STA (07:24)
[2023-06-28] MEDS: MULTIVITAMIN TABLET PO SCH (07:49)
[2023-06-28] MEDS ORDERED: cefTRIAXone 1 GM in SODIUM CHLORIDE 0.9% MINIBAG 100 ML IV STA (08:34)
[2023-06-28] MEDS ORDERED: SODIUM CHLORIDE 0.9% 1,000 ML IV STA (10:10)
--- NOTE | 2023-06-28 10:29 | ED Physician Documentation ---
ED Addendum - Addendum Addendum: Patient signed out to me by overnight physician awaiting transfer to [facility]. Has been periodically bradycardic and hypotensive. A.m. labs demonstrate hypokalemia. IV and p.o. replacements have already been ordered. 06/28/23 10:28 Patient without any complaints this morning. States that she feels well. Awaiting transfer. 06/28/23 13:19 There is still no beds available at [facility] and unsure when they will have discharges to be able to except this patient there. On recheck her potassium is significantly improved at 3.4 and magnesium is 1.7. Her heart rate this morning has primarily been in the 60s. Her blood pressure has remained borderline but has been stable with IV fluids. This could all be related to her medications. I have reviewed the case with our admitting hospitalist Dr. Rangel who will review the chart to see if this is an appropriate patient to be admitted at our hospital. 06/28/23 13:45 Dr. Rangel has reviewed the patient's chart and feels that she is Appropriate for admission here. She will place admit orders. Departure - Departure Disposition: [facility] DC/Xfer Clinical Impression: Hypokalemia, Acute urinary tract infection, Acute kidney injury, Gait difficulty, Orthostatic hypotension, Bradycardia Condition: Good
[2023-06-28 12:42] LABS: MAGNESIUM 1.7 mg/dL (1.7-2.3); POTASSIUM 3.4 mmol/L (3.5-4.5)
[2023-06-28] MEDS ORDERED: SODIUM CHLORIDE FLUSH 0.9% 10 ML SYRINGE IVP PRN (13:59)
--- NOTE | 2023-06-28 14:05 | HISTORY & PHYSICAL EXAMINATION ---
Chief Complaint - Chief Complaint Chief Complaint: dizziness, fall at home History of Present Illness - Admitted From Admitted From:: Home - History Obtained From Records Reviewed: Yes History obtained from: Patient, ED sign out - History of Present Illness HPI Comment/Other: A 74 years old female with history of hypertension, hypothyroidism, depression, restless leg syndrome, lupus, Sjogren syndrome, osteoporosis, atrial fibrillation diagnosed 4 months ago on Xarelto Presented to the ED on 06/27/2023 due to weakness and a fall at home. Patient reports she felt very weak, and her legs gave out and she had a fall. Denies loss of consciousness, denies palpitation or skipped beats, denies chest pain, no URI symptoms. No dysuria or urgency. No fever or chills, but with poor appetite in the past few days, poor oral intake and weight loss. She felt all her clothes were loose but not sure about how much weight she lost. She usually follows with the [facility], she has a scheduled cardiology appointment next week. She had a scheduled echocardiogram was supposed to be done 2 weeks ago, however she was not able to get transportation for that test. She lives alone with her dog, with minimal family support. In the ED, patient noted with heart rate of 40s. Blood pressure 90s/60s. Orthostatic vital signs were positive. Patient was afebrile, saturated well on room air. Labs significant with potassium of 2.1, UA has sign of infection. Patient was given IV fluid, potassium supplement, and 1 dose of ceftriaxone in the ED. Initially ED provider plan to transfer patient to cardiology service available facility, however was not able to find a bed to transfer patient. Potassium has been aggressively supplemented, patient potassium improved to 3.4. Blood pressure maintained at 98/76, heart rate has maintained around 50-60s. EKG and troponin appears to be benign. ED provider requested for admission for further management. History - Past Medical History Cardiovascular: reports: Atrial fibrillation Respiratory: reports: Asthma Neuro: reports: Peripheral neuropathy Endocrine/Autoimmune: reports: HyPOthyroidism, Other GI: reports: Hiatal hernia FIXED ROUTE OPERATOR: reports: None : reports: None HEENT: reports: None Psych: reports: Depression Musculoskeletal: reports: Chronic back pain Derm: reports: Herpes zoster MRSA Hx?: No Other Past Medical History: Lupus, Sjogren, restless leg syndrome - Past Surgical History General: reports: Cholecystectomy, Appendectomy Ortho: reports: Arthroscopic surgery, Other - POLST Patient has POLST: No Meds/Allgy - Home Medications Home Medications: Ambulatory Orders Medication Instructions Recorded Confirmed Amiodarone [Pacerone] 200 mg PO BID 06/13/22 06/27/23 Amitriptyline HCl 50 mg PO HS 06/13/22 06/27/23 Calcium Citrate 400 mg PO BID 06/13/22 06/27/23 Gabapentin [Neurontin] 600 mg PO Q6HR 06/13/22 06/27/23 Hydroxychloroquine [Plaquenil] 400 mg PO DAILY 06/13/22 06/27/23 Levothyroxine [Synthroid] 125 mcg PO QDAC 06/13/22 06/27/23 Rivaroxaban [Xarelto] 20 mg PO QDDINNER 06/13/22 06/27/23 Ropinirole HCl 0.5 mg PO BID 06/13/22 06/27/23 Rosuvastatin Calcium [Crestor] 20 mg PO HS 06/13/22 06/27/23 Sacubitril/Valsartan [Entresto 97 1 each PO BID 06/13/22 06/27/23 mg-103 mg Tablet] Sertraline HCl 100 mg PO DAILY 06/13/22 06/27/23 carvediloL [Coreg] 3.125 mg PO BID 06/13/22 06/27/23 Cholecalciferol (Vitamin D3) 125 mcg PO Q6HR 10/18/22 06/27/23 [Vitamin D3] Potassium Chloride [Klor-Con] 20 meq PO DAILY #10 packet 06/27/23 cephALEXin [Keflex] 500 mg PO BID 7 Days #14 cap 06/27/23 - Allergies Allergies/Adverse Reactions: Allergies Allergy/AdvReac Type Severity Reaction Status Date / Time codeine Allergy Emesis Verified 06/27/23 11:51 lisinopril Allergy Edema Verified 06/27/23 11:51 Review of Systems - Constitutional Constitutional: reports: Fatigue, Weakness, Poor appetite, Weight loss - Eyes Eyes: denies: Field loss, Vision loss - Ears, Nose & Throat Ears, Nose & Throat: denies: Nasal obstruction, Nasal congestion, Sore throat - Cardiovascular Cariovascular: reports: Irregular heart rate. denies: Chest pain, Syncope - Respiratory Respiratory: denies: Cough, Wheezing, Orthopnea - Gastrointestinal Gastrointestinal: denies: Abdominal pain, Black stools - Genitourinary Genitourinary: denies: Dysuria, Frequency, Incontinence - Musculoskeletal Musculoskeletal: reports: Muscle weakness - Neurological Neurological: reports: General weakness, Dizziness. denies: Focal weakness - Psychiatric Psychiatric: reports: Depression - Endocrine Endocrine: denies: Polydypsia, Polyphagia, Intolerance to cold Prior Level of Functionality: Independent ADLs Exam - Vital Signs Vital Signs: Vital Signs x48h Temp Pulse Resp BP Pulse Ox 06/28/23 13:08 70 19 98/55 L 98 06/28/23 10:55 59 L 14 96/71 100 06/28/23 10:15 60 82/69 L 06/28/23 10:00 60 20 105/63 96 06/28/23 08:00 36.6 C 59 L 18 126/83 H 100 06/28/23 06:36 49 L 19 110/55 L 99 06/28/23 06:30 52 L 14 85/62 L 96 06/28/23 06:16 45 L 18 91/63 97 - Physical Exam General Appearance: positive: No acute distress, Alert Eyes Bilateral: positive: Normal inspection, PERRL, EOMI ENT: positive: ENT inspection nml, Pharynx nml Neck: positive: Nml inspection, Thyroid nml, No JVD Respiratory: positive: Chest non-tender, No respiratory distress. negative: Wheezes, Rales, Rhonchi Cardiovascular: positive: Irregularly irregular, Bradycardia. negative: JVD present Abdomen: positive: Non-tender, No distention Skin: positive: Color nml, No rash, Warm Extremities: positive: Non-tender, No pedal edema Neurologic/Psychiatric: positive: Oriented x3, CN's nml (2-12), Motor nml, Sensa tion nml Sepsis Event Note (H) - Evaluation Current Stage of Sepsis: Ruled out Conclusion/Plan - Problem List (1) Bradycardia Conclusion/Plan: Symptomatic bradycardia in A-fib patient Can be effect of amiodarone and carvedilol she has been taking Hold carvedilol Continue amiodarone with 200 mg once a day to ensure there are no tachyarrhythmia Continue monitoring electrolytes To keep potassium over 4, magnesium over 2Telemetry Monitoring symptoms If heart rate less than 30, atropine need to be given (2) Hypokalemia Conclusion/Plan: Severe hypokalemia with potassium 2.1, which contribute to the weakness patient has Potassium has been corrected to 3.4 Continue give potassium oral Follow-up with potassium level with goal of potassium over 4 (3) Acute kidney injury Conclusion/Plan: Creatinine 1.5 at time of admission, improved to 1.3 after IV fluid given Likely her JOHANA is due to poor oral intake, prerenal cause Encouraging oral intake Follow-up on renal function Strict I and O (4) Orthostatic hypotension Conclusion/Plan: Likely secondary to poor oral intake, volume depletion Received IV fluid in the ED, feels better Orthostatic vital signs every shift (5) Acute urinary tract infection Conclusion/Plan: UA shows LE positive, WBC positive Received ceftriaxone 1 dose in the ED Await for UA culture Give Keflex for 5 days, to eliminate the possible confounding UTI caused hypoten scarlett (6) Lupus Conclusion/Plan: Continue home medications mycophenolate, Plaquenil (7) Sjogren's disease Conclusion/Plan: Continue home meds mycophenolate and Plaquenil (8) Hypothyroidism Conclusion/Plan: TSH normal Resume home dose Synthyroid (9) Elevated troponin Conclusion/Plan: Troponin minimally elevated, flat trends, no EKG ischemic changes Denies chest pain No indication for ACS Likely due to stress is related to mild myocardial injury Mild elevated BNP can be sign of heart failure Echocardiogram to evaluate ejection fraction and valvular status and no wall motion Telemetry If there are new chest pain, will repeat troponin and EKG - Lab Results Fish Bones: 06/28/23 05:28 06/28/23 12:21 - EKG Results EKG Interpreted Independently: Yes EKG Comparison: Other (No ischemic changes, Bradycardia, A-fib)
--- NOTE | 2023-06-28 15:31 | PHARMACY PROGRESS NOTE ---
- Best Possible Medication History Admit Date and Time: 06/28/23 1348 Processed by: Nursing As the person ultimately responsible for medication therapy, providers are able to order a medication from an existing home medication list in [facility] via the "Reconcile Routine" prior to Confirmation of that medication by clerical support. Such practice is discouraged except when the physician, in their clinical judgment, deems that a medical need exists for a medication without regard to previous use.
[2023-06-28] MEDS ORDERED: ACETAMINOPHEN 325 MG TABLET PO PRN (15:36)
[2023-06-28] MEDS ORDERED: ONDANSETRON ODT 4 MG TABLET TL PRN (15:36)
[2023-06-28] MEDS ORDERED: ATROPINE 0.4 MG/ML VIAL IVP PRN (16:43)
[2023-06-28] MEDS: GABAPENTIN 300 MG CAPSULE PO SCH (21:41)
[2023-06-28] MEDS: mycophenolate mofetiL 250 MG CAPSULE PO SCH (21:41)
[2023-06-28] MEDS: APIXABAN 5 MG TABLET PO SCH (21:41)
[2023-06-28] MEDS: rOPINIRole 0.25 MG TABLET PO SCH (21:41)
[2023-06-28] MEDS: ATORVASTATIN 40 MG TABLET PO SCH (21:41)
[2023-06-28] MEDS: POTASSIUM CHLORIDE 20 MEQ/15 ML UDC PO SCH (21:42)
[2023-06-28] MEDS: SODIUM CHLORIDE FLUSH 0.9% 10 ML SYRINGE IVP SCH ×2 (22:14→23:58)
[2023-06-29] MEDS: PANTOPRAZOLE 40 MG TABLET PO SCH (06:09)
[2023-06-29] MEDS: GABAPENTIN 300 MG CAPSULE PO SCH ×3 (06:09→21:48)
[2023-06-29] MEDS: LEVOTHYROXINE 125 MCG TABLET PO SCH (06:09)
--- NOTE | 2023-06-29 08:02 | PROVIDER PROGRESS NOTE ---
Assessment/Plan - Problem List (1) Bradycardia Assessment/Plan: resolved, has tendency to become tachycardia continue Tele Resume Home dose carvedilol Increased amiodarone back to home dose (2) Hypokalemia Assessment/Plan: Continue give potassium, follow-up on BMP (3) Acute kidney injury Assessment/Plan: Improving, creatinine 1.2 today comparing to 1.4 yesterday Give 1 L of IV fluid today Monitoring renal function (4) Orthostatic hypotension Assessment/Plan: No further also orthostatic hypotension anymore Likely it was due to dehydration Echo shows EF 50 to 55%.Less likely cardiac condition caused orthostatic hypotension (6) Lupus Assessment/Plan: Continue home meds (7) Sjogren's disease Assessment/Plan: Continue home meds (8) Hypothyroidism Assessment/Plan: Continue home dose Synthroid, TSH normal range (9) Elevated troponin Assessment/Plan: EF 50 to 55% on echo. Diastolic subtle regional wall motion abnormality are difficult to assess in the presence of arrhythmia. Mild right ventricular enlargement Severe increase in left atrial volume index, severe right atrial enlargement. With no report of chest pain, ACS is less likely. Monitoring patient clinically - Current Meds Current Meds: Current Medications Generic Name Dose Route Start Last Admin Trade Name Freq PRN Reason Stop Dose Admin Apixaban 5 mg 06/28/23 21:00 06/28/23 21:41 Apixaban 5 Mg Tablet PO 5 mg BID PARK Administration Atorvastatin Calcium 20 mg 06/28/23 21:00 06/28/23 21:41 Atorvastatin 40 Mg Tablet PO 20 mg QPM PARK Administration Gabapentin 300 mg 06/28/23 22:00 06/29/23 06:09 Gabapentin 300 Mg Capsule PO 300 mg TID PARK Administration Levothyroxine Sodium 125 mcg 06/29/23 07:00 06/29/23 06:09 Levothyroxine 125 Mcg Tablet PO 125 mcg QDAC PARK Administration Multivitamins 1 tab 06/28/23 08:00 06/28/23 07:49 Multivitamin Tablet PO 1 tab DAILYWM PARK Administration Mycophenolate Mofetil 500 mg 06/28/23 21:00 06/28/23 21:41 Mycophenolate Mofetil 250 Mg Capsule PO 500 mg BID PARK Administration Pantoprazole Sodium 40 mg 06/28/23 07:00 06/29/23 06:09 Pantoprazole 40 Mg Tablet PO 40 mg QDAC PARK Administration Potassium Chloride 20 meq 06/28/23 21:00 06/28/23 21:42 Potassium Chloride 20 Meq/15 Ml Udc PO 07/01/23 20:59 20 meq BID PARK Administration Ropinirole HCl 0.5 mg 06/28/23 21:00 06/28/23 21:41 Ropinirole 0.25 Mg Tablet PO 0.5 mg BID PARK Administration Sodium Chloride 10 ml 06/28/23 17:00 06/28/23 23:58 Sodium Chloride Flush 0.9% 10 Ml Syringe IVP 10 ml 0100,0900,1700 PARK Administration - Lab Result Fish Bone Diagrams: 06/29/23 08:16 06/29/23 08:16 - Additional Planning My Orders: My Active Orders 06/28/23 Lunch Regular Diet [DIET] 06/28/23 13:59 Activity Orders [RC] Q2HR IO [RC] IOSHIFT Incentive Spirometry - RT [RC] TID Initiate Bowel Care Protocol [RC] .protocol Initiate Line Care Protocol [RC] QSHIFT Initiate Personal Care Protoco [RC] .protocol Oxygen Therapy [RC] .PRN Vital Signs [RC] 0800,1600,0000 Sodium Chloride Flush 0.9% [Normal Saline Flush 0.9%] 10 ml IVP PRN PRN Code Status [OTHERS] Routine Condition of Patient [OTHERS] Routine DVT Prophylaxis [OTHERS] Routine 06/28/23 15:36 Acetaminophen [Tylenol] 650 mg PO Q4HR PRN Ondansetron Odt [Zofran Odt] 4 mg TL Q4HR PRN 06/28/23 15:39 Telemetry- [RC] Q4HR 06/28/23 16:43 Atropine 0.4 mg IVP ONCE PRN 06/28/23 17:00 Sodium Chloride Flush 0.9% [Normal Saline Flush 0.9%] 10 ml IVP 0100,0900,1700 06/28/23 21:00 Apixaban [Eliquis] 5 mg PO BID Atorvastatin [Lipitor] 20 mg PO QPM Potassium Chloride Oral Soln [Potassium Chloride] 20 meq PO BID mycophenolate mofetiL [Cellcept] 500 mg PO BID rOPINIRole [Requip] 0.5 mg PO BID 06/28/23 22:00 Gabapentin [Neurontin] 300 mg PO TID 06/29/23 BMP - BASIC METABOLIC PANEL [CHEM] Stat CBC W/O DIFF (HEMOGRAM) [HEME] Stat MAGNESIUM [CHEM] Stat 06/29/23 07:00 Levothyroxine [Synthroid] 125 mcg PO QDAC 06/29/23 08:00 Hydroxychloroquine [Plaquenil] 400 mg PO QDBREAKFAST Multivitamin W/Minerals [Theragran M] 1 tab PO DAILYWM 06/29/23 09:00 Amiodarone [Pacerone] 200 mg PO DAILY Calcium Citrate 250 mg PO DAILY Cholecalciferol [Vitamin D3] 400 unit PO DAILY Sertraline [Zoloft] 100 mg PO DAILY cephALEXin [Keflex] 500 mg PO BID 06/30/23 05:00 BMP - BASIC METABOLIC PANEL [CHEM] DAILYLAB CBC [CBC - COMP BLD CT W/AUTO DIFF] [HEME] DAILYLAB 07/01/23 05:00 BMP - BASIC METABOLIC PANEL [CHEM] DAILYLAB CBC [CBC - COMP BLD CT W/AUTO DIFF] [HEME] DAILYLAB 07/02/23 05:00 BMP - BASIC METABOLIC PANEL [CHEM] DAILYLAB CBC [CBC - COMP BLD CT W/AUTO DIFF] [HEME] DAILYLAB 07/03/23 05:00 BMP - BASIC METABOLIC PANEL [CHEM] DAILYLAB CBC [CBC - COMP BLD CT W/AUTO DIFF] [HEME] DAILYLAB 07/04/23 05:00 BMP - BASIC METABOLIC PANEL [CHEM] DAILYLAB CBC [CBC - COMP BLD CT W/AUTO DIFF] [HEME] DAILYLAB Subjective - Subjective Patient Reports: Feeling Better (Feels stronger, able to walk with PT OT around the unit, without feeling dizziness or weakness) Objective Vital Signs: Vital Signs - 24 hr 06/28/23 06/28/23 06/28/23 10:00 10:15 10:55 Temperature Heart Rate 60 60 59 L Heart Rate [ Brachial] Heart Rate [ Monitoring electrodes] Heart Rate [ Radial] Respiratory 20 14 Rate Blood Pressure 105/63 82/69 L 96/71 Blood Pressure [Right Brachial artery] O2 Saturation 96 100 06/28/23 06/28/23 06/28/23 13:08 15:09 15:36 Temperature 37.3 C 36.5 C Heart Rate 70 Heart Rate [ Brachial] Heart Rate [ 51 L Monitoring electrodes] Heart Rate [ 50 L Radial] Respiratory 19 16 24 Rate Blood Pressure 98/55 L Blood Pressure 91/74 94/62 [Right Brachial artery] O2 Saturation 98 97 96 06/28/23 06/29/23 06/29/23 20:13 00:00 06:13 Temperature 37.1 C 37.1 C 36.8 C Heart Rate Heart Rate [ 86 59 L 54 L Brachial] Heart Rate [ Monitoring electrodes] Heart Rate [ Radial] Respiratory 24 20 20 Rate Blood Pressure Blood Pressure 128/79 118/71 130/82 H [Right Brachial artery] O2 Saturation 98 94 95 Oxygen O2 Source Room air I&O (Last 24 Hrs): Intake and Output Totals x24h 06/27/23 06/28/23 06/29/23 23:59 23:59 23:59 Intake Total 2100 2750 Output Total 350 0 Balance 1750 2750 0 General: Alert, Oriented x3 HEENT: PERRLA, EOMI Neck: Supple, No JVD Neuro: Alert, Non Focal Cardiovascular: Other (Irregular rate rhythm) Respiratory: Chest non-tender, No respiratory distress Abdomen: Normal bowel sounds, Soft Extremities: No clubbing, No edema - Results Results: Laboratory Results WBC 3.6 x10^3/uL (4.8-10.8) L 06/28/23 05:28 RBC 3.95 10^6/uL (4.20-5.40) L 06/28/23 05:28 Hgb 11.8 g/dL (12.0-16.0) L 06/28/23 05:28 Hct 35.7 % (37.0-47.0) L 06/28/23 05:28 MCV 90.4 fL (81.0-99.0) 06/28/23 05:28 MCH 29.9 pg (27.0-31.0) 06/28/23 05:28 MCHC 33.1 g/dL (32.0-36.0) 06/28/23 05:28 RDW 14.8 % (12.0-15.0) 06/28/23 05:28 Plt Count 111 10^3/uL (130-450) L 06/28/23 05:28 MPV 10.3 fL (7.9-10.8) 06/28/23 05:28 Neut # (Auto) 2.2 10^3/uL (1.5-6.6) 06/28/23 05:28 Lymph # (Auto) 0.9 10^3/uL (1.5-3.5) L 06/28/23 05:28 [place] # (Auto) 0.5 10^3/uL (0.0-1.0) 06/28/23 05:28 Eos # (Auto) 0.0 10^3/uL (0.0-0.7) 06/28/23 05:28 Baso # (Auto) 0.0 10^3/uL (0.0-0.1) 06/28/23 05:28 Absolute Nucleated RBC 0.00 x10^3/uL 06/28/23 05:28 Nucleated RBC % 0.0 /100WBC 06/28/23 05:28 PT 17.4 secs (9.9-12.6) H 06/27/23 13:13 INR 1.6 (0.8-1.2) H 06/27/23 13:13 Sodium 144 mmol/L (135-145) 06/28/23 05:28 Potassium 3.4 mmol/L (3.5-4.5) L 06/28/23 12:21 Chloride 107 mmol/L (101-111) 06/28/23 05:28 Carbon Dioxide 33 mmol/L (21-32) H 06/28/23 05:28 Anion Gap 4.0 (6-13) L 06/28/23 05:28 BUN 18 mg/dL (6-20) 06/28/23 05:28 Creatinine 1.3 mg/dL (0.6-1.3) 06/28/23 05:28 Estimated GFR (MDRD) 40 (>89) L 06/28/23 05:28 Glucose 136 mg/dL (74-104) H 06/28/23 05:28 Calcium 7.8 mg/dL (8.5-10.3) L 06/28/23 05:28 Magnesium 1.7 mg/dL (1.7-2.3) 06/28/23 12:21 Total Bilirubin 0.6 mg/dL (0.2-1.0) 06/27/23 12:09 AST 42 IU/L (10-42) 06/27/23 12:09 ALT 26 IU/L (10-60) 06/27/23 12:09 Alkaline Phosphatase 46 IU/L (42-121) 06/27/23 12:09 Troponin I High Sens 47.0 ng/L (2.3-14.8) H* 06/27/23 18:50 Total Protein 5.1 g/dL (6.4-8.9) L 06/27/23 12:09 Albumin 3.0 g/dL (3.2-5.5) L 06/27/23 12:09 Globulin 2.1 g/dL (2.1-4.2) 06/27/23 12:09 Albumin/Globulin Ratio 1.4 (1.0-2.2) 06/27/23 12:09 Lipase 12 U/L (11-82) 06/27/23 12:09 TSH 0.43 uIU/mL (0.34-5.60) 06/27/23 18:50 Urine Color YELLOW 06/27/23 13:30 Urine Clarity CLEAR (CLEAR) 06/27/23 13:30 Urine pH 6.0 PH (5.0-7.5) 06/27/23 13:30 Ur Specific [place] 1.020 (1.002-1.030) 06/27/23 13:30 Urine Protein 100 mg/dL (NEGATIVE) H 06/27/23 13:30 Urine Glucose (UA) NEGATIVE mg/dL (NEGATIVE) 06/27/23 13:30 Urine Ketones 15 mg/dL (NEGATIVE) H 06/27/23 13:30 Urine Occult Blood SMALL (NEGATIVE) H 06/27/23 13:30 Urine Nitrite NEGATIVE (NEGATIVE) 06/27/23 13:30 Urine Bilirubin NEGATIVE (NEGATIVE) 06/27/23 13:30 Urine Urobilinogen 0.2 (NORMAL) E.U./dL (NORMAL) 06/27/23 13:30 Ur Leukocyte Esterase SMALL (NEGATIVE) H 06/27/23 13:30 Urine RBC 0-5 /HPF (0-5) 06/27/23 13:30 Urine WBC 6-10 /HPF (0-5) H 06/27/23 13:30 Ur Squamous Epith Cells FEW Squamous (<= Few) 06/27/23 13:30 Urine Bacteria Few /HPF (None Seen) 06/27/23 13:30 Urine Casts 3-5 Hyaline Casts /LPF 06/27/23 13:30 Ur Microscopic Review INDICATED 06/27/23 13:30 Urine Culture Comments INDICATED 06/27/23 13:30 Urine Opiates Screen NEGATIVE (NEGATIVE) 06/27/23 13:30 Ur Oxycodone Screen NEGATIVE (NEGATIVE) 06/27/23 13:30 Urine Methadone Screen NEGATIVE (NEGATIVE) 06/27/23 13:30 Ur Propoxyphene Screen NEGATIVE (NEGATIVE) 06/27/23 13:30 Ur Barbiturates Screen NEGATIVE (NEGATIVE) 06/27/23 13:30 Ur Tricyclics Screen POSITIVE (NEGATIVE) H 06/27/23 13:30 Ur Phencyclidine Scrn NEGATIVE (NEGATIVE) 06/27/23 13:30 Ur Amphetamine Screen NEGATIVE (NEGATIVE) 06/27/23 13:30 U Methamphetamines Scrn NEGATIVE (NEGATIVE) 06/27/23 13:30 U Benzodiazepines Scrn NEGATIVE (NEGATIVE) 06/27/23 13:30 Urine Cocaine Screen NEGATIVE (NEGATIVE) 06/27/23 13:30 U Cannabinoids Screen POSITIVE (NEGATIVE) H 06/27/23 13:30 Sepsis Event Note (H) - Evaluation Current Stage of Sepsis: Ruled out ABX Reporting Has patient been on IV antibiotics over the past 48 hours?: No Current Medications - Current Medications Current Medications: Active Medications Acetaminophen (Acetaminophen 325 Mg Tablet) 650 mg PO Q4HR PRN PRN Reason: Pain or Fever > 38C (100.4F) Amiodarone HCl (Amiodarone 200 Mg Tablet) 200 mg PO BID [facility] Apixaban (Apixaban 5 Mg Tablet) 5 mg PO BID [facility] Last Admin: 06/29/23 09:04 Dose: 5 mg Atorvastatin Calcium (Atorvastatin 40 Mg Tablet) 20 mg PO QPM [facility] Last Admin: 06/28/23 21:41 Dose: 20 mg Atropine Sulfate (Atropine 0.4 Mg/Ml Vial) 0.4 mg IVP ONCE PRN PRN Reason: Bradycardia Stop: 07/13/23 16:42 Calcium Citrate (Calcium Citrate 250 Mg Tablet) 250 mg PO DAILY [facility] Last Admin: 06/29/23 09:03 Dose: 250 mg Carvedilol (Carvedilol 12.5 Mg Tablet) 12.5 mg PO BID [facility] Cephalexin (Cephalexin 250 Mg Capsule) 500 mg PO BID [facility] Stop: 07/04/23 08:59 Last Admin: 06/29/23 09:03 Dose: 500 mg Cholecalciferol (Cholecalciferol 400 Unit Tablet) 400 unit PO DAILY [facility] Last Admin: 06/29/23 09:16 Dose: 400 unit Gabapentin (Gabapentin 300 Mg Capsule) 300 mg PO TID [facility] Last Admin: 06/29/23 13:48 Dose: 300 mg Hydroxychloroquine Sulfate (Hydroxychloroquine 200 Mg Tablet) 400 mg PO QDBREAKFAST [facility] Stop: 06/30/23 08:01 Last Admin: 06/29/23 09:04 Dose: 400 mg Magnesium Sulfate (Magnesium Sulfate) 2 gm in 50 mls @ 50 mls/hr IV Q4H [facility] Stop: 06/29/23 20:59 Potassium Chloride/Sodium Chloride (Normal Saline 0.9% W/20 Meq Kcl) 1,000 mls @ 83.333 mls/hr IV .Q12H [facility] Stop: 06/30/23 03:59 Levothyroxine Sodium (Levothyroxine 125 Mcg Tablet) 125 mcg PO QDAC [facility] Last Admin: 06/29/23 06:09 Dose: 125 mcg Multivitamins/Minerals (Multivitamin W/Minerals Tablet) 1 tab PO DAILYWM [facility] Last Admin: 06/29/23 09:05 Dose: Not Given Mycophenolate Mofetil (Mycophenolate Mofetil 250 Mg Capsule) 500 mg PO BID [facility] Last Admin: 06/29/23 09:03 Dose: 500 mg Ondansetron HCl (Ondansetron Odt 4 Mg Tablet) 4 mg TL Q4HR PRN PRN Reason: Nausea / Vomiting Pantoprazole Sodium (Pantoprazole 40 Mg Tablet) 40 mg PO QDAC [facility] Last Admin: 06/29/23 06:09 Dose: 40 mg Potassium Chloride (Potassium Chloride 20 Meq/15 Ml Udc) 20 meq PO BID [facility] Stop: 07/01/23 20:59 Last Admin: 06/29/23 09:03 Dose: 20 meq Ropinirole HCl (Ropinirole 0.25 Mg Tablet) 0.5 mg PO BID [facility] Last Admin: 06/29/23 09:04 Dose: 0.5 mg Sertraline HCl (Sertraline 50 Mg Tablet) 100 mg PO DAILY [facility] Last Admin: 06/29/23 09:04 Dose: 100 mg Sodium Chloride (Sodium Chloride Flush 0.9% 10 Ml Syringe) 10 ml IVP PRN PRN PRN Reason: NEEDED PER PROVIDER ORDERS Sodium Chloride (Sodium Chloride Flush 0.9% 10 Ml Syringe) 10 ml IVP 0100,0900,1700 [facility]ARK Last Admin: 06/29/23 09:05 Dose: 10 ml Amiodarone [Pacerone] 200 mg PO BID 06/13/22 Amitriptyline HCl 50 mg PO HS 06/13/22 Calcium Citrate 400 mg PO BID 06/13/22 Gabapentin [Neurontin] 600 mg PO Q6HR 06/13/22 Hydroxychloroquine [Plaquenil] 400 mg PO DAILY 06/13/22 Levothyroxine [Synthroid] 125 mcg PO QDAC 06/13/22 Rivaroxaban [Xarelto] 20 mg PO QDDINNER 06/13/22 Ropinirole HCl 0.5 mg PO BID 06/13/22 Rosuvastatin Calcium [Crestor] 20 mg PO HS 06/13/22 Sacubitril/Valsartan [Entresto 97 mg-103 mg Tablet] 1 each PO BID 06/13/22 Sertraline HCl 100 mg PO DAILY 06/13/22 carvediloL [Coreg] 3.125 mg PO BID 06/13/22 Cholecalciferol (Vitamin D3) [Vitamin D3] 125 mcg PO Q6HR 10/18/22
[2023-06-29 08:20] LABS: HCT - HEMATOCRIT 36.4 % (37.0-47.0); HGB - HEMOGLOBIN 11.7 g/dL (12.0-16.0); MEAN CORPUSCULAR HEMOGLOBIN 29.5 pg (27.0-31.0); MEAN CORPUSCULAR HGB CONC 32.1 g/dL (32.0-36.0); MEAN CORPUSCULAR VOLUME 91.9 fL (81.0-99.0); RED BLOOD COUNT 3.96 10^6/uL (4.20-5.40); RED CELL DISTRIBUTION WIDTH 15.4 % (12.0-15.0); WHITE BLOOD COUNT 3.1 x10^3/uL (4.8-10.8)
[2023-06-29 08:37] LABS: CREATININE 1.2 mg/dL (0.6-1.3); MAGNESIUM 1.5 mg/dL (1.7-2.3); POTASSIUM 3.2 mmol/L (3.5-4.5)
[2023-06-29] MEDS ORDERED: AMIODARONE 200 MG TABLET PO SCH (09:00)
[2023-06-29] MEDS: cephALEXin 250 MG CAPSULE PO SCH ×2 (09:03→21:50)
[2023-06-29] MEDS: POTASSIUM CHLORIDE 20 MEQ/15 ML UDC PO SCH ×2 (09:03→21:52)
[2023-06-29] MEDS: mycophenolate mofetiL 250 MG CAPSULE PO SCH ×2 (09:03→21:49)
[2023-06-29] MEDS: CALCIUM CITRATE 250 MG TABLET PO SCH (09:03)
[2023-06-29] MEDS: HYDROXYCHLOROQUINE 200 MG TABLET PO SCH (09:04)
[2023-06-29] MEDS: rOPINIRole 0.25 MG TABLET PO SCH ×2 (09:04→21:49)
[2023-06-29] MEDS: MULTIVITAMIN TABLET PO SCH (09:04)
[2023-06-29] MEDS: APIXABAN 5 MG TABLET PO SCH ×2 (09:04→21:49)
[2023-06-29] MEDS: SERTRALINE 50 MG TABLET PO SCH (09:04)
[2023-06-29] MEDS: SODIUM CHLORIDE FLUSH 0.9% 10 ML SYRINGE IVP SCH ×3 (09:05→23:52)
[2023-06-29] MEDS: MULTIVITAMIN W/MINERALS TABLET PO SCH (09:05)
[2023-06-29] MEDS: CHOLECALCIFEROL 400 UNIT TABLET PO SCH (09:16)
[2023-06-29] MEDS ORDERED: NS W/20 MEQ KCL 1,000 ML IV SCH (16:00)
[2023-06-29] MEDS: AMIODARONE 200 MG TABLET PO SCH ×2 (16:46→21:48)
[2023-06-29] MEDS: carvediloL 12.5 MG TABLET PO SCH ×2 (16:46→21:50)
[2023-06-29] MEDS: MAGNESIUM SULFATE 2 GRAM 2 GM/50 ML BAG IV SCH ×2 (16:49→21:50)
[2023-06-29] MEDS: ATORVASTATIN 40 MG TABLET PO SCH (21:49)
[2023-06-30] MEDS: PANTOPRAZOLE 40 MG TABLET PO SCH (05:33)
[2023-06-30] MEDS: LEVOTHYROXINE 125 MCG TABLET PO SCH (05:33)
[2023-06-30] MEDS: GABAPENTIN 300 MG CAPSULE PO SCH (05:33)
[2023-06-30 05:42] LABS: BASOPHILS % (AUTO) 0.4 %; HCT - HEMATOCRIT 35.2 % (37.0-47.0); HGB - HEMOGLOBIN 11.5 g/dL (12.0-16.0); MEAN CORPUSCULAR HEMOGLOBIN 30.1 pg (27.0-31.0); MEAN CORPUSCULAR HGB CONC 32.7 g/dL (32.0-36.0); MEAN CORPUSCULAR VOLUME 92.1 fL (81.0-99.0); MEAN PLATELET VOLUME 10.2 fL (7.9-10.8); MONOCYTES % (AUTO) 11.6 %; NEUTROPHILS % (AUTO) 52.6 %; PLT - PLATELET COUNT 95 10^3/uL (130-450); RED BLOOD COUNT 3.82 10^6/uL (4.20-5.40); RED CELL DISTRIBUTION WIDTH 15.5 % (12.0-15.0); WHITE BLOOD COUNT 2.8 x10^3/uL (4.8-10.8)
[2023-06-30 06:01] LABS: CALCIUM 7.9 mg/dL (8.5-10.3); CREATININE 1.1 mg/dL (0.6-1.3); MAGNESIUM 2.2 mg/dL (1.7-2.3); POTASSIUM 4.1 mmol/L (3.5-4.5)
[2023-06-30 07:03] LABS: ABNORMAL LYMPHS % (MANUAL) 0 %; BAND NEUTROPHILS % (MANUAL) 0 %
[2023-06-30 07:12] LABS: EOSINOPHILS # (MANUAL) 0.1 10^3/uL (0-0.7); LYMPHOCYTES # (MANUAL) 0.7 10^3/uL (1.5-3.5); LYMPHOCYTES % (MANUAL) 19 %; MONOCYTES # (MANUAL) 0.2 10^3/uL (0.0-1.0); NEUTROPHILS # (MANUAL) 1.8 10^3/uL (1.5-6.6); NUCLEATED RBC (MANUAL) 1 %; REACTIVE LYMPHS % (MANUAL) 7 %
[2023-06-30 07:13] LABS: PLATELET ESTIMATE, MANUAL DECREASED (<130,000) (NORMAL)
[2023-06-30 07:14] LABS: DIFFERENTIAL COMMENT MANUAL DIFFERENTIAL
[2023-06-30] MEDS: POTASSIUM CHLORIDE 20 MEQ/15 ML UDC PO SCH (08:58)
[2023-06-30] MEDS: mycophenolate mofetiL 250 MG CAPSULE PO SCH (08:59)
[2023-06-30] MEDS: cephALEXin 250 MG CAPSULE PO SCH (08:59)
[2023-06-30] MEDS: SERTRALINE 50 MG TABLET PO SCH (08:59)
[2023-06-30] MEDS: rOPINIRole 0.25 MG TABLET PO SCH (08:59)
[2023-06-30] MEDS: CALCIUM CITRATE 250 MG TABLET PO SCH (08:59)
[2023-06-30] MEDS: HYDROXYCHLOROQUINE 200 MG TABLET PO SCH (08:59)
[2023-06-30] MEDS: CHOLECALCIFEROL 400 UNIT TABLET PO SCH (09:00)
[2023-06-30] MEDS: AMIODARONE 200 MG TABLET PO SCH (09:00)
[2023-06-30] MEDS: APIXABAN 5 MG TABLET PO SCH (09:00)
[2023-06-30] MEDS: carvediloL 12.5 MG TABLET PO SCH (09:00)
[2023-06-30] MEDS: MULTIVITAMIN W/MINERALS TABLET PO SCH (09:00)
--- NOTE | 2023-06-30 12:04 | Discharge Plan ---
Discharge Plan Problem Reviewed?: Yes Disposition: Home, Self Care Condition: Good Prescriptions: Calcium Citrate 250 mg PO DAILY 30 Days #30 tab Potassium Chloride [Klor-Con] 20 meq PO DAILY #10 packet Diet: Regular Activity Restrictions: No Restrictions Shower Restrictions: No Driving Restrictions: Yes (if you are strong enought) Assistance Devices: Walker Weight Bearing: Full Weight Instruction Topics: Hypokalemia Dc Health Concerns: You have very low heart rate 40s, low blood pressure when standing, your potassium was 2.1 on admission, it should be 3.5-4.5. Please keep good oral intake, eat healthy, drink pedialyte from time to time. Check your Bp and pulse at home, write on a log, bring to your appointment. 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 Your Echo report is given to you, please bring it to your cardiology appointment Assessment: stable, your HR 70-90s during hospital stay, Bp is stable. 110-130/60s Additional Instructions or Follow Up instructions: Please follow-up with your specialist as planned in the next couple of weeks and establish care locally with a primary care provider. You will need to have your blood redrawn within the next week to check your kidney function and electrolytes. Please try to stay well-hydrated and ensure adequate nutrients in your diet. I did discuss the possibility of needing fdc placement due to your unsteady gait however at this time you would like to continue living independently however if you change your mind or have recurrent falls, we may need to consider placement in a fdc until you get your strength back. No Smoking: If you smoke, Please STOP! Call for help.
--- NOTE | 2023-06-30 12:12 | DISCHARGE SUMMARY ---
Discharge Summary Admit Date: 06/28/23 Discharge Date: 06/30/23 Discharging Provider: Jason Rangel Code Status: Attempt Resuscitation Condition at Discharge: Stable Discharge Disposition: 01 Home, Self Care - DIAGNOSES Admission Diagnoses: Bradycardia, hypokalemia, orthostatic hypotension, JOHANA, acute urinary tract infection Discharge Diagnoses with Status of Each Condition: Bradycardia, resolved Hypokalemia, resolved JOHANA, resolved Orthostatic hypotension resolved UTI, resolved - HPI History of Present Illness: A 74 years old female with history of hypertension, hypothyroidism, depression, restless leg syndrome, lupus, Sjogren's syndrome, osteoporosis, atrial fibrillation diagnosed 4 months ago on Xarelto Presented to the ED on 06/27/2023 due to weakness and a fall at home. Patient reports she felt very weak and her legs gave out and she had a fall denies loss of consciousness, denies palpitation or skipped beats denies chest pain or URI symptoms no dysuria or urgency. No fever or chills but she has been had poor appetite in the past few days, poor oral intake and weight loss. She usually follows with the [facility] she has a scheduled cardiology appointment next week. She had a scheduled echocardiogram was supposed to be done 2 weeks ago, however she was not able to get transportation for that test. She lives alone with her dog with minimal family support. In the ED patient noted that heart rate of 40s, blood pressure 90/60. Orthostatic vital signs were positive. Patient was afebrile, saturating well on room air. Labs significant with potassium of 2.1, UA shows sign of LE positive. Patient was given IV fluid, potassium supplement and 1 dose of ceftriaxone in the ED. Initially ED provider plans to transfer patient to cardiology service available facility, however was not able to find a bed to transfer patient. Potassium has been aggressively supplemented. The patient potassium improved to 3.4 and blood pressure maintained well at 98/76 heart rate has maintained around 50 to 60s. EKG and troponin appears to be benign. EKG no acute ischemic changes. Troponin was flat at minimal elevation of 45. ED provider requested for admission for further management - HOSPITAL COURSE Hospital Course: After admission, patient home meds has been added just, resumed her amiodarone to lower dose, hold her carvedilol for a day. Patient heart rate gradually improved to 60s to 80s, had a tendency of going up to 100. Resumed patient carv edilol dose, resumed her amiodarone home dose. With echocardiogram shows her EF 55%, not much concerns of acute heart failure with low contractility. Therefore continue to hold her Entresto. With with IV fluid given, patient blood pressure started to be stable around 100-1 30/60-70. Patient feels well after potassium and magnesium normalized. No new events telemetry monitoring during hospital stay, no complaints of chest pain or shortness of breath. Denies dysuria or frequency, give patient to doses of Keflex during hospital stay to make the UTI treatment course of total 3 days completed. Patient is able to participate with PT OT evaluation. Patient able to walk using a walker in a fairly steady gait. With improvement of her condition patient is discharged 06/30/2023, with advise of continue holding Entresto. And follow-up with her legal contracts specialist's planned. Continue to use potassium magnesium for 2 weeks to use your electrolytes are optimized. - ALLERGIES Allergies/Adverse Reactions: Allergies Allergy/AdvReac Type Severity Reaction Status Date / Time codeine Allergy Emesis Verified 06/27/23 11:51 lisinopril Allergy Edema Verified 06/27/23 11:51 - MEDICATIONS Home Medications: Ambulatory Orders Medication Instructions Recorded Confirmed Amiodarone [Pacerone] 200 mg PO BID 06/13/22 06/27/23 Amitriptyline HCl 50 mg PO HS 06/13/22 06/27/23 Calcium Citrate 400 mg PO BID 06/13/22 06/27/23 Gabapentin [Neurontin] 600 mg PO Q6HR 06/13/22 06/27/23 Hydroxychloroquine [Plaquenil] 400 mg PO DAILY 06/13/22 06/27/23 Levothyroxine [Synthroid] 125 mcg PO QDAC 06/13/22 06/27/23 Rivaroxaban [Xarelto] 20 mg PO QDDINNER 06/13/22 06/27/23 Ropinirole HCl 0.5 mg PO BID 06/13/22 06/27/23 Rosuvastatin Calcium [Crestor] 20 mg PO HS 06/13/22 06/27/23 Sertraline HCl 100 mg PO DAILY 06/13/22 06/27/23 carvediloL [Coreg] 3.125 mg PO BID 06/13/22 06/27/23 Cholecalciferol (Vitamin D3) 125 mcg PO Q6HR 10/18/22 06/27/23 [Vitamin D3] Potassium Chloride [Klor-Con] 20 meq PO DAILY #10 packet 06/27/23 Calcium Citrate 250 mg PO DAILY 30 Days #30 tab 06/30/23 Calcium Citrate 500 gm MC QDBREAKFAST 14 Days #14 06/30/23 gm Magnesium Oxide [Magnesium Oxide 240 mg PO QDBREAKFAST 14 Days #14 06/30/23 400] packet Potassium Chloride 20 meq PO QDBREAKFAST 14 Days #14 06/30/23 tab - PHYSICAL EXAM AT DISCHARGE General Appearance: positive: No acute distress, Alert Eyes Bilateral: positive: PERRL, EOMI ENT: positive: ENT inspection nml, Pharynx nml Neck: positive: Nml inspection, Thyroid nml, No JVD Respiratory: positive: Chest non-tender, No respiratory distress Cardiovascular: positive: Irregularly irregular Abdomen: positive: Non-tender, No distention Skin: positive: Color nml, No rash, Warm Extremities: positive: Non-tender, No pedal edema Neurologic/Psychiatric: positive: Oriented x3, CN's nml (2-12) - LABS Result Diagrams: 06/30/23 05:02 06/30/23 05:02 - SEPSIS Current Stage of Sepsis: Ruled out - TIME SPENT Time Spent in Discharge (Minutes): 55
[2023-06-30 14:47] VITALS: BP 100/69; O2SAT 98
== END 2023-06-30 14:09 | disposition home or self-care (01) | DRG 312 ==
LOC: EDUNIT# → ED 11:41 → MS2 06-28 13:48
PROVIDERS: ADMIT Internal Medicine; ATTEND Internal Medicine
DX: I95.1 Orthostatic hypotension (principal); N39.0 Urinary tract infection, site not specified; N17.9 Acute kidney failure, unspecified; R26.89 Other abnormalities of gait and mobility; R00.1 Bradycardia, unspecified; E87.6 Hypokalemia; M35.00 Sjogren syndrome, unspecified; E03.9 Hypothyroidism, unspecified; R79.89 Other specified abnormal findings of blood chemistry; M32.9 Systemic lupus erythematosus, unspecified; W06.XXXA Fall from bed, initial encounter; I48.91 Unspecified atrial fibrillation; J45.909 Unspecified asthma, uncomplicated; Z91.81 History of falling; W18.30XA Fall on same level, unspecified, initial encounter; Y92.009 Unspecified place in unspecified non-institutional (private) residence as the place of occurrence of the external cause; F32.A Depression, unspecified; R53.1 Weakness
CPT/HCPCS: 36415; 71045; 80048; 80053; 80306; 81001; 83690; 83735; 84132; 84443; 84484; 85025; 85027; 85610; 87086; 93005; 93306; 97116; 97161; 97165; 97530; 99285; A9270; 81003

== ENCOUNTER 2023-08-16 13:10 | Outpatient (CLI) | payer OTHER ==
--- NOTE | 2023-08-24 12:26 | Mammography Report ---
BILATERAL DIGITAL SCREENING MAMMOGRAM 3D/2D: 08/16/2023 CLINICAL: Routine screening. No prior exams were available for comparison. Both breasts are heterogeneously dense, which may obscure small masses (category c / 51-75% glandular tissue). No significant masses, calcifications, or other findings are seen in either breast. IMPRESSION: NEGATIVE There is no mammographic evidence of malignancy. A 1 year screening mammogram is recommended. Based on the Tyrer Cuzick model (a risk assessment model) the patients lifetime risk is 7.9% and her 10 year risk is 7.2%. According to the ACR, ACS, and NCCN guidelines, an annual breast MRI exam negrito g with mammogram is recommended if the patients lifetime risk is 20% or greater. This exam was interpreted at Station ID: [id number]. NOTE: For mammograms, a report in lay terms will be sent to the patient. Approximately 15% of breast malignancies will not be visualized mammographically. In the management of a palpable breast mass, a negative mammogram must not discourage biopsy of a clinically suspicious lesion. Electronically Signed By: Rosalva Brooks M.D., PH.D eb/penrad:08/23/2023 09:07:59 letter sent: No_Letter ACR BI-RADS Category 1: Negative 3341F PARENCHYMAL PATTERN: (D) - The breast(s) demonstrate(s) heterogeneously dense fibroglandular parjennifery dayana. BI-RADS CATEGORY: (1) - 1 Mammogram [id number] 1 year screening LATERALITY: (B)
== END 2023-08-16 13:11 | disposition home or self-care (01) ==
LOC: DI.N 13:10
PROVIDERS: ATTEND Internal Medicine
DX: Z12.31 Encounter for screening mammogram for malignant neoplasm of breast (principal); R92.333 Mammographic heterogeneous density, bilateral breasts